=== PATIENT | male | born 1985 | race Caucasian/White ===

== ENCOUNTER 2017-01-12 20:09 | Emergency (ER) | payer OTHER ==
[2017-01-12] MEDS ORDERED: Nalbuphine 10 MG/1 ML Vial IM ONE (21:33)
[2017-01-12] MEDS ORDERED: Lidocaine 2% 5 ML SDV ONE (22:19)
[2017-01-12] MEDS ORDERED: Propofol 200 MG/20 ML SDV ONE (22:19)
[2017-01-12] MEDS ORDERED: fentaNYL 100 MCG/2 ML SDV ONE (22:19)
[2017-01-12] MEDS ORDERED: Lactated Ringers 1,000 ML IV ONE (22:21)
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
--- NOTE | 2017-01-12 23:05 | PCM48HPAN ---
Post Anesthesia Note - EVALUATION WITHIN 48HRS OF ANESTHETIC Vital Signs in Normal Range: Yes Patient Participated in Evaluation: Yes Respiratory Function Stable: Yes Airway Patent: Yes Cardiovascular Function Stable: Yes Hydration Status Stable: Yes Pain Control Satisfactory: Yes Nausea and Vomiting Control Satisfactory: Yes Mental Status Recovered: Yes - COMMENTS/OBSERVATIONS Free Text/Narrative:: pt awake and alert with no complaints after care turned back over to nursing staff.
[2017-01-12 23:45] VITALS: BP 127/62
--- NOTE | 2017-01-13 11:11 | CR ---
EXAM DATE: 01/12/17 PATIENT'S AGE: 31 Patient: FANNY MOHAN Facility: [place], [place] Site . Site : 1985 Study: XRay Shoulder Right [id number]/23/2017 9:03:29 PM Ordering Physician: Doctor Mckenzie Final Report: Right shoulder. 3 VIEWS INDICATION: Pain. IMPRESSION: No visualized fracture. Humeral degeneration with moderate marginal spurring. Alignment of the glenohumeral joint appears normal. Spurring of the medial humerus is noted with early narrowing of the anterior glenohumeral joint space on the axillary view. The frontal view does not completely include the head of the humerus. Dictated by Bud Noe MD @ Jan 12 2017 9:29PM (Electronic Signature) Report Signed by Proxy. JUAN
== END 2017-01-12 23:43 | disposition home or self-care (01) ==
LOC: MW.ED 20:09
DX: M75.01 Adhesive capsulitis of right shoulder (principal); Z98.890 Other specified postprocedural states; F17.210 Nicotine dependence, cigarettes, uncomplicated; Z91.09 Other allergy status, other than to drugs and biological substances
CPT/HCPCS: 23650; 73030; 96365; 96372; 99283; A4566; J2300; J3010; J7120; 01620; 99282; J2704

== ENCOUNTER 2017-01-19 13:39 | Emergency (ER) | payer OTHER ==
[2017-01-19] MEDS ORDERED: Sodium Chloride 0.9% 2.5 ML Syringe FLUSH PRN (13:58)
[2017-01-19] MEDS ORDERED: Sodium Chloride 0.9% 10 ML Syringe FLUSH PRN (13:58)
[2017-01-19] MEDS ORDERED: Ondansetron 4 MG/2 ML SDV IVPUSH ONE (13:58)
[2017-01-19] MEDS ORDERED: Morphine 2 MG/ML Syringe IVPUSH ONE ×3 (13:58→16:20)
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
--- NOTE | 2017-01-19 14:59 | CR ---
EXAMINATION: Right shoulder HISTORY: 01/12/2017 COMPARISON: 01/12/2017 TECHNIQUE: 2 views FINDINGS/IMPRESSION: There is a curvilinear ossific density projecting between the humeral head and g lenoid possibly representing a small fracture. Remaining osseous structures and joint spaces otherwis e appear intact. Bone mineralization is otherwise normal.
[2017-01-19] MEDS ORDERED: Propofol 200 MG/20 ML SDV ONE (16:57)
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
--- NOTE | 2017-01-19 17:44 | PCM.OPNOTE ---
- General Post-Op/Procedure Note Date of Surgery/Procedure: 01/19/17 Operative Procedure(s): CR R shoulder Post-Op Diagnosis: R shoulder posterior dislocation Anesthesia Technique: Moderate Sedation Primary Surgeon: Amina Combs Editor Map: Luis Enrique Springer in mLs: 0 Condition: Good Free Text/Narrative:: #[id number]
[2017-01-19] MEDS ORDERED: Acetaminophen/HYDROcodone 325-10 MG Tab PO ONE (17:51)
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
[2017-01-19 18:51] VITALS: BP 120/80
--- NOTE | 2017-01-20 00:31 | OR ---
SURGEON: Amina Combs MD DATE OF PROCEDURE: 01/19/2017 PREOPERATIVE DIAGNOSIS: Right posterior shoulder dislocation. POSTOPERATIVE DIAGNOSIS: Right posterior shoulder dislocation. PROCEDURE: Closed reduction, right shoulder. PRESCHOOL DISABILITY TEACHER: Luis Enrique Springer PA-C. ANESTHESIA: Sedation. ESTIMATED BLOOD LOSS: 0 mL. TOURNIQUET TIME: 0 minutes. COMPLICATIONS: None. DVT PROPHYLAXIS: Not indicated. IMPLANTS USED: None. BRIEF HISTORY: Jorge is a 31-year-old, right-hand dominant male, who was seen in the emergency room with complaint of right shoulder pain. He held his shoulder in a flexed position to 90 degrees. He complained of pain with any other movement. He does have a history of three prior shoulder surgeries for chronic instability. He did undergo closed reduction of a right shoulder dislocation approximately one week ago. He states he had been doing well until this recent episode. He states that earlier today he was throwing some garbage when he felt a pain in his right shoulder. He presented to the emergency room. Upon review of the x- rays, I did recommend closed reduction of the shoulder. The risks and goals of the procedure were discussed with the patient and were documented preoperatively. He agreed to proceed. DESCRIPTION OF PROCEDURE: The patient was properly identified. Conscious sedation was administered by the anesthesia staff. After adequate anesthesia was obtained, a time-out was performed to ensure correct site and procedure. Preoperative antibiotics were not given. The surgical site had been marked preoperatively. Gentle traction was applied to the shoulder and the shoulder reduced quite easily. It was taken through a range of motion. He did have full range of motion; however, with forward flexion, I was able to posteriorly dislocate him. He was again reduced and placed into a shoulder immobilizer. Postreduction x- rays confirmed adequate reduction of the shoulder. He was awakened from his anesthetic. He tolerated the procedure well. He is instructed to remain in a shoulder immobilizer. He was not to do any active motion of the right shoulder. CECILIA / RICARDO /[id number]
--- NOTE | 2017-01-20 09:36 | CR ---
EXAM DATE: 01/19/17 PATIENT'S AGE: 31 Patient: FANNY MOHAN Facility: [place], [place] Site . Site : 1985 Study: XRay Shoulder Right [id number]/30/2017 5:44:16 PM Ordering Physician: Doctor Mckenzie Final Report: INDICATION: post reduction. COMPARISON: Film done earlier the same day. FINDINGS: Two views of the right shoulder were obtained. There is no dislocation seen. Again noted is a well corticated calcification anterior to the humeral head may be related to old fracture versus of spurring. This was present on the film done 01/12/2017. There is a smaller calcifications seen anterior to the humeral head on the trans axillary view which could be a chip fracture. This is not seen on the films done 01/12/2017. Dictated by Alban Roe MD @ 01/19/2017 7:08:34 PM Dictated by: Alban Roe MD @ 01/19/2017 19:09:43 (Electronic Signature) Report Signed by Proxy. JUAN
== END 2017-01-19 18:45 | disposition home or self-care (01) ==
LOC: MW.ED 13:39
DX: S43.021A Posterior subluxation of right humerus, initial encounter (principal); F17.210 Nicotine dependence, cigarettes, uncomplicated; F32.9 Major depressive disorder, single episode, unspecified; Z98.890 Other specified postprocedural states; Z91.048 Other nonmedicinal substance allergy status; X58.XXXA Exposure to other specified factors, initial encounter; Y93.89 Activity, other specified; Y99.0 Civilian activity done for income or pay
CPT/HCPCS: 23650; 73030; 96374; 96375; 96376; 99152; 99153; 99283; A9270; J2270; J2405; 01620; 99282; J2704

== ENCOUNTER 2017-02-03 00:25 | Emergency (ER) | payer OTHER ==
[2017-02-03 00:38] VITALS: BP 135/82
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
--- NOTE | 2017-02-03 10:23 | CT ---
EXAM DATE: 02/03/17 PATIENT'S AGE: 31 Patient: FANNYKenyon MOHAN Facility: [place], [place] Site . Site : 1985 Study: CT Spine Lumbar WO CONT [id number]/14/2017 1:01:00 AM Ordering Physician: Doctor Mckenzie Final Report: INDICATION: Loss of sensation and can`t move the left leg for 3 hours. Back pain. TECHNIQUE: CT lumbar spine without contrast. COMPARISON: None. FINDINGS: Minimal leftward convex curvature of the lumbar spine. No evidence of acute fracture or other significant bony central canal compromise. No suspicious lytic or sclerotic osseous lesion. Mild disc bulge at L3-4. Limited imaging of the contents within the central canal is otherwise unremarkable by CT. No significant bony neural foraminal narrowing at any level. Paraspinal soft tissues elsewhere as imaged are unremarkable. IMPRESSION: No acute or suspicious osseous abnormality. Dictated by Julián Harrington MD @ 02/03/2017 1:25:30 AM Dictated by: Julián Harrington MD @ 02/03/2017 01:25:40 (Electronic Signature) Report Signed by Proxy. JOHN [facility]. OISHEI CHILDREN'S HOSPITALDevaughn
== END 2017-02-03 01:26 | disposition left against medical advice (07) ==
LOC: MW.ED 00:25 → EEVIPCON 00:25 → MW.ED 01:26
DX: G57.92 Unspecified mononeuropathy of left lower limb (principal); F17.210 Nicotine dependence, cigarettes, uncomplicated; Z91.041 Radiographic dye allergy status
CPT/HCPCS: 72131; 72131-26; 99283; 99283-25

== ENCOUNTER 2017-02-25 13:15 | Emergency (ER) | payer OTHER ==
[2017-02-25] MEDS ORDERED: Sodium Chloride 0.9% 2.5 ML Syringe FLUSH PRN (13:54)
[2017-02-25] MEDS ORDERED: Sodium Chloride 0.9% 10 ML Syringe FLUSH PRN (13:54)
[2017-02-25] MEDS ORDERED: Sodium Chloride 0.9% 1,000 ML IV ONE (13:57)
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
--- NOTE | 2017-02-25 14:30 | CR ---
EXAMINATION: Right shoulder HISTORY: Pain COMPARISON: 01/19/2017 TECHNIQUE: 3 views FINDINGS: There is no definite fracture or acute osseous abnormality. Humeral head appears high ridin g which may suggest underlying rotator cuff arthropathy. Subchondral sclerosis is noted within the gl enoid. Osteophyte formation is noted within the glenohumeral joint, possibly secondary to an old inju ry. This likely an old healed right clavicle fracture deformity also noted. IMPRESSION: 1. No definite acute osseous abnormality. 2. Right humerus appears high riding which may suggest underlying rotator cuff arthropathy. 3. Age advanced osteoarthritic changes within the glenohumeral joint, likely secondary to an old inju ry.
[2017-02-25] MEDS ORDERED: HYDROmorphone 2 MG/ML Syringe IVPUSH ONE (14:50)
--- NOTE | 2017-02-25 16:10 | CR ---
EXAMINATION: Right shoulder HISTORY: Post reduction COMPARISON: Same day TECHNIQUE: 2 views FINDINGS/IMPRESSION: Again noted in the right humerus is high riding suggesting rotator cuff arthropa thy. No evidence of dislocation on the Y view. Moderate osteoarthritic changes noted within the gleno humeral joint.
[2017-02-25 16:36] VITALS: BP 127/68
== END 2017-02-25 16:26 | disposition home or self-care (01) ==
LOC: MW.ED 13:15
DX: M24.411 Recurrent dislocation, right shoulder (principal); F17.210 Nicotine dependence, cigarettes, uncomplicated; Z91.048 Other nonmedicinal substance allergy status
CPT/HCPCS: 23650; 73030; 96361; 96374; 99283; A4566; J1170; J7040

== ENCOUNTER 2017-03-16 15:03 | Emergency (ER) | payer OTHER ==
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
--- NOTE | 2017-03-16 16:13 | CR ---
EXAMINATION: Right shoulder HISTORY: Pain COMPARISON: 02/25/2017 TECHNIQUE: 3 views FINDINGS: There is no fracture or acute osseous abnormality. The humeral head appears partially sublu xed posteriorly on the Y view. However the axillary view precludes complete dislocation. There is ost eophyte formation noted along the posterior aspect of the glenoid. IMPRESSION: 1. Partial posterior subluxation of the glenohumeral joint without complete dislocation.
[2017-03-16] MEDS ORDERED: Ketorolac 60 MG/2 ML SDV IM ONE (16:15)
--- NOTE | 2017-03-16 16:41 | CR ---
EXAMINATION: Right shoulder HISTORY: Pain COMPARISON: Same day TECHNIQUE: 2 views FINDINGS/IMPRESSION: Post reduction images demonstrate the glenohumeral joint in normal alignment wit hout evidence of a dislocation or subluxation.
[2017-03-16 17:41] VITALS: BP 133/72
== END 2017-03-16 17:25 | disposition home or self-care (01) ==
LOC: MW.ED 15:03
DX: M24.411 Recurrent dislocation, right shoulder (principal); F17.210 Nicotine dependence, cigarettes, uncomplicated; X50.0XXA Overexertion from strenuous movement or load, initial encounter; Y99.0 Civilian activity done for income or pay
CPT/HCPCS: 23650; 73030; 96372; 99283; A4566; J1885

== ENCOUNTER 2017-03-17 13:25 | Emergency (ER) | payer OTHER ==
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
[2017-03-17 14:20] LABS: ACETAMINOPHEN < 3.0 ug/mL; CHLORIDE,CL 107 mmol/L (98-110); SODIUM,NA 139 mmol/L (136-146)
[2017-03-17 15:26] VITALS: BP 123/77
== END 2017-03-17 15:53 ==
LOC: MW.ED 13:25
DX: R45.851 Suicidal ideations (principal); S51.811A Laceration without foreign body of right forearm, initial encounter; F17.210 Nicotine dependence, cigarettes, uncomplicated; F31.9 Bipolar disorder, unspecified; X78.8XXA Intentional self-harm by other sharp object, initial encounter
CPT/HCPCS: 36415; 80053; 80305; 81001; 83735; 84443; 84481; 85025; 93005; 99284; G0480; 99283

== ENCOUNTER 2017-03-27 10:20 | Emergency (ER) | payer OTHER ==
[2017-03-27 10:36] VITALS: BP 124/62
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
--- NOTE | 2017-03-28 10:41 | CR ---
EXAM DATE: 03/27/17 PATIENT'S AGE: 31 Patient: FANNY MOHAN Facility: [place], [place] Site . Site : 1985 Study: XRay Chest Left RIBS [id number]/5/2017 11:10:09 AM Ordering Physician: Doctor Mckenzie Final Report: CLINICAL INDICATION: Left anterior rib pain for 2 days with no known injury. Findings: The cardiomediastinal silhouette, lung parenchyma, pulmonary vasculature and pleural surfaces are all normal in appearance. There is mild thoracic spinal asymmetry. Left rib details views are negative for fracture or other osseous abnormality. Impression: Mild thoracic spinal asymmetry. Normal appearing left ribs. Dictated by Rizwan Sauceda MD @ Mar 27 2017 11:31AM (Electronic Signature) Report Signed by Proxy. JUAN
== END 2017-03-27 12:15 | disposition home or self-care (01) ==
LOC: MW.ED 10:20
DX: R07.81 Pleurodynia (principal); F17.210 Nicotine dependence, cigarettes, uncomplicated; Z79.899 Other long term (current) drug therapy; Z91.09 Other allergy status, other than to drugs and biological substances; Z91.048 Other nonmedicinal substance allergy status
CPT/HCPCS: 71101-26-LT; 71101-LT; 99282; 99283

== ENCOUNTER 2017-05-21 14:10 | Emergency (ER) | payer OTHER ==
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
[2017-05-21] MEDS ORDERED: Pantoprazole 40 MG Tab.CR PO ONE (14:31)
[2017-05-21 16:57] VITALS: BP 112/61
== END 2017-05-21 14:37 | disposition home or self-care (01) ==
LOC: MW.ED 14:10
DX: K29.70 Gastritis, unspecified, without bleeding (principal); F17.210 Nicotine dependence, cigarettes, uncomplicated; Z91.048 Other nonmedicinal substance allergy status
CPT/HCPCS: 99283; A9270; 99282

== ENCOUNTER 2017-05-30 13:16 | Emergency (ER) | payer OTHER ==
--- NOTE | 2017-05-30 13:51 | CR ---
EXAMINATION: Right shoulder HISTORY: Dislocation COMPARISON: 03/16/2017 TECHNIQUE: Single oblique AP view FINDINGS/IMPRESSION: There is no acute osseous abnormality, dislocation, or fracture. There is a prom inent humeral osteophyte along the inferior aspect of the glenohumeral joint. A posterior dislocation cannot be excluded.
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
--- NOTE | 2017-05-30 14:46 | CR ---
EXAMINATION: Right shoulder HISTORY: Post reduction COMPARISON: 2 views TECHNIQUE: There is no acute osseous abnormality, dislocation, or fracture. FINDINGS/IMPRESSION: No residual evidence of a glenohumeral dislocation. Mild osteoarthritic changes noted within the glenohumeral joint.
[2017-05-30 14:59] VITALS: BP 97/73
== END 2017-05-30 14:41 | disposition home or self-care (01) ==
LOC: MW.ED 13:16
DX: M24.411 Recurrent dislocation, right shoulder (principal); F17.210 Nicotine dependence, cigarettes, uncomplicated; Z79.899 Other long term (current) drug therapy
CPT/HCPCS: 23650; 73020; 73030; 99283; A4566

== ENCOUNTER 2017-06-10 07:33 | Emergency (ER) | payer OTHER ==
[2017-06-10] MEDS ORDERED: Ketorolac 60 MG/2 ML SDV IM ONE (07:46)
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
--- NOTE | 2017-06-10 08:35 | CR ---
EXAMINATION: Lumbar spine, sacrum and coccyx HISTORY: Pain COMPARISON: 06/10/2017 TECHNIQUE: AP and lateral views of the lumbar spine and AP and lateral views sacrum and coccyx. FINDINGS: Mild levocurvature of the lumbar spine. The vertebral body heights and disc spaces appear m aintained. No fracture or acute osseous abnormality. Bone mineralization is grossly normal. SI joints are symmetric. Sacrum and coccyx appear grossly intact. IMPRESSION: No acute findings noted within the lumbar spine or sacrum.
[2017-06-10 08:42] VITALS: BP 109/63
== END 2017-06-10 09:02 | disposition home or self-care (01) ==
LOC: MW.ED 07:33
DX: S39.012A Strain of muscle, fascia and tendon of lower back, initial encounter (principal); F32.9 Major depressive disorder, single episode, unspecified; F17.210 Nicotine dependence, cigarettes, uncomplicated; Z91.048 Other nonmedicinal substance allergy status; Z79.899 Other long term (current) drug therapy; W19.XXXA Unspecified fall, initial encounter
CPT/HCPCS: 72100; 72220; 96372; 99283; J1885

== ENCOUNTER 2017-07-12 21:35 | Emergency (ER) | payer OTHER ==
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
[2017-07-12 23:16] VITALS: BP 109/65
--- NOTE | 2017-07-13 14:28 | CR ---
EXAM DATE: 07/12/17 PATIENT'S AGE: 32 Patient: FANNY CERDA Facility: [place], [place] Site . Site : 1985 Study: XRay Shoulder Right [id number]/20/2018 10:10:06 PM Ordering Physician: Doctor Mckenzie Final Report: HISTORY: Dislocation, history of dislocation. FINDINGS/IMPRESSION: Three views of the right shoulder were obtained and compared with 30 May 2017. An AP image was obtained. Two additional images with atypical positioning were also obtained. Images demonstrates degenerative changes of the glenohumeral joint with a Hill-Sachs deformity. New anterior subcoracoid dislocation is appreciated. Recommend a trans-scapular Y-view for complete evaluation for dislocation and exclude posterior dislocation. Dictated by Carline Mathis MD @ 07/12/2017 10:29:05 PM Dictated by: Carline Mathis MD @ 07/12/2017 22:29:13 (Electronic Signature) Report Signed by Proxy. JUAN
--- NOTE | 2017-07-13 14:29 | CR ---
EXAM DATE: 07/12/17 PATIENT'S AGE: 32 Patient: FANNY CERDA Facility: [place], [place] Site . Site : 1985 Study: XRay Shoulder Right [id number]/20/2018 11:06:23 PM Ordering Physician: Parviz Davis Final Report: HISTORY: Dislocation, history of dislocations. FINDINGS: Additional transscapular Y-view was obtained and compared with AP and axillary views as well as prior examination of 30 May 2017. There is decrease of the glenohumeral joint with spurring. One of the axillary views demonstrates a calcific density anteriorly. This has been previously described on report of 19 January 2017. There does appear to be a Hill-Sachs deformity depression of the humeral head. No current dislocation is seen. The fixed anterior position of the humerus in the joint may be a result of marked degenerative changes. Alternatively, if there is an old fracture fragment, this could also be the source of locking. Dictated by Carline Mathis MD @ 07/12/2017 11:36:49 PM Dictated by: Carline Mathis MD @ 07/12/2017 23:40:04 (Electronic Signature) Report Signed by Proxy. JUAN
== END 2017-07-12 23:55 | disposition home or self-care (01) ==
LOC: MW.ED 21:35
DX: S49.91XA Unspecified injury of right shoulder and upper arm, initial encounter (principal); F17.210 Nicotine dependence, cigarettes, uncomplicated; Z98.890 Other specified postprocedural states; Z79.899 Other long term (current) drug therapy; Z91.048 Other nonmedicinal substance allergy status; Z91.018 Allergy to other foods
CPT/HCPCS: 73020-26-RT; 73020-RT; 73030-26-RT; 73030-RT; 99283

== ENCOUNTER 2017-08-13 01:30 | Emergency (ER) | payer OTHER | END 2017-08-13 01:36 | disposition left against medical advice (07) | LOC: MW.ED 01:30 | DX: Z53.21 Procedure and treatment not carried out due to patient leaving prior to being seen by health care provider (principal) | CPT/HCPCS: 99283 ==

== ENCOUNTER 2017-08-24 15:59 | Emergency (ER) | payer SELFPAY ==
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
[2017-08-24 18:11] VITALS: BP 122/65
--- NOTE | 2017-08-25 09:32 | CR ---
EXAM DATE: 08/24/17 PATIENT'S AGE: 32 Patient: FANNY MARQUES Facility: [place], [place] Site . Site : 1985 Study: XRay Extremity Left [id number] humerus-08/24/2017 4:46:10 PM Ordering Physician: Adiel Cardona Final Report: INDICATION: Left Humerus Pain for 1 Week with no Injury TECHNIQUE: Two-views of the left humerus. The proximal humerus evaluation is degraded secondary to under penetration COMPARISON: None FINDINGS: Bones: Questionable cortical step-off along the distal left humerus seen only on the lateral projection. Joint spaces: Unremarkable. Soft tissues: Unremarkable. IMPRESSION: Questionable cortical step-off along the distal left humerus seen only on the lateral projection. Recommend dedicated left elbow radiographs to help further delineate. Dictated by Mauricio Velez MD @ 08/24/2017 4:58:12 PM Dictated by: Mauricio Velez MD @ 08/24/2017 16:59:05 (Electronic Signature) Report Signed by Proxy. JUAN
--- NOTE | 2017-08-25 09:34 | CR ---
EXAM DATE: 08/24/17 PATIENT'S AGE: 32 Patient: FANNY MOHAN Facility: [place], [place] Site . Site : 1985 Study: XRay Extremity Left elbow [id number]/4/2018 5:23:07 PM Ordering Physician: Adiel Cardona Final Report: INDICATION: Questionable cortical step-off involving the distal left humerus on prior study. No history trauma. TECHNIQUE: 4 views left elbow COMPARISON: 09/13/2011 FINDINGS: Bones: Alignment is normal. No fractures or bone lesions. Joint spaces: Unremarkable. Soft tissues: Unremarkable. IMPRESSION: No definitive fracture or joint effusion to suggest occult fracture. Correlate with point tenderness of the distal humerus. Dictated by Teddy Curiel MD @ 08/24/2017 5:49:39 PM Dictated by: Teddy Curiel MD @ 08/24/2017 17:49:46 (Electronic Signature) Report Signed by Proxy. [email or web address]
== END 2017-08-24 18:05 | disposition home or self-care (01) ==
LOC: MW.ED 15:59
DX: M79.602 Pain in left arm (principal); Z91.041 Radiographic dye allergy status; Z87.891 Personal history of nicotine dependence
CPT/HCPCS: 73060-26-LT; 73060-LT; 73080-26-LT; 73080-LT; 99282; 99283

== ENCOUNTER 2017-08-25 20:26 | Emergency (ER) | payer OTHER ==
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
[2017-08-25 22:23] VITALS: BP 107/57
--- NOTE | 2017-08-26 14:29 | CR ---
EXAM DATE: 08/25/17 PATIENT'S AGE: 32 Patient: FANNY MOHAN Facility: [place], [place] Site . Site : 1985 Study: XRay Extremity Right HAND [id number]/5/2018 9:19:04 PM Ordering Physician: Doctor Mckenzie Final Report: INDICATION: PT STATES PUNCHED A WALL TONIGHT, PAIN IN HAND TECHNIQUE: Three views of the right hand COMPARISON: None FINDINGS: Bones: No fractures or bone lesions. Joint spaces: Unremarkable. Soft tissues: Unremarkable. IMPRESSION: No acute bony abnormality Dictated by Mauricio Velez MD @ 08/25/2017 9:21:10 PM Dictated by: Mauricio Velez MD @ 08/25/2017 21:28:05 (Electronic Signature) Report Signed by Proxy. [facility] MEDICAL CENTERDevaughn
== END 2017-08-25 22:16 | disposition home or self-care (01) ==
LOC: MW.ED 20:26
DX: S60.221A Contusion of right hand, initial encounter (principal); Z91.048 Other nonmedicinal substance allergy status; Z79.899 Other long term (current) drug therapy; Z87.891 Personal history of nicotine dependence; W22.8XXA Striking against or struck by other objects, initial encounter
CPT/HCPCS: 73130-26-RT; 73130-RT; 99283

== ENCOUNTER 2017-09-08 20:45 | Emergency (ER) | payer OTHER ==
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
[2017-09-08 22:11] VITALS: BP 117/75
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
== END 2017-09-08 22:10 | disposition home or self-care (01) ==
LOC: MW.ED 20:45
DX: M24.411 Recurrent dislocation, right shoulder (principal); F17.210 Nicotine dependence, cigarettes, uncomplicated; Z91.048 Other nonmedicinal substance allergy status; Z79.899 Other long term (current) drug therapy
CPT/HCPCS: 73030; 99283; A4566

== ENCOUNTER 2017-10-27 12:22 | Emergency (ER) | payer OTHER ==
[2017-10-27 12:47] VITALS: BP 140/86
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
--- NOTE | 2017-10-27 13:39 | CR ---
Left foot Clinical history: Pain Comparison: None Findings: Moderate hallux valgus. Bones are normally mineralized for age with no acute findings. Impression: Moderate hallux valgus
[2017-10-27] MEDS ORDERED: Alum Hydrox/Mag Hydrox/Simeth 15 ML, Metoclopramide 5 MG, Lidocaine 2% 5 ML PO ONE ×3 (13:54)
[2017-10-27] MEDS ORDERED: LORazepam 2 MG/ML SDV IVPUSH ONE (13:54)
[2017-10-27] MEDS ORDERED: Pantoprazole 40 MG Vial IVPUSH ONE (13:54)
== END 2017-10-27 14:19 | disposition home or self-care (01) ==
LOC: MW.ED 12:22
DX: M79.672 Pain in left foot (principal); Z91.041 Radiographic dye allergy status; Z91.048 Other nonmedicinal substance allergy status; F17.210 Nicotine dependence, cigarettes, uncomplicated
CPT/HCPCS: 73630-26-LT; 73630-LT; 99283

== ENCOUNTER 2017-11-29 17:17 | Emergency (ER) | payer OTHER ==
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
[2017-11-29] MEDS ORDERED: Ketorolac 60 MG/2 ML SDV IM ONE (18:28)
[2017-11-29 19:43] VITALS: BP 127/74
--- NOTE | 2017-11-30 12:56 | CR ---
EXAM DATE: 11/29/17 PATIENT'S AGE: 32 Patient: FANNY MOHAN Facility: [place], [place] Site . Site : 1985 Study: XRay Extremity Left hand [id number]/10/2018 6:37:01 PM Ordering Physician: Doctor Mckenzie Final Report: INDICATION: Dog bites to hand TECHNIQUE: Hand radiograph 2 views left COMPARISON: None FINDINGS: Bones: No acute fractures or aggressive bone lesions are identified. Joints: The carpal and metacarpal-phalangeal joints are unremarkable in appearance. The interphalangeal joints are normal in appearance. Soft tissues: Unremarkable. No radiopaque foreign bodies are seen. IMPRESSION: 1. No acute osseous injuries or abnormalities are noted. Dictated by: Curt Abbasi MD @ 11/29/2017 18:54:27 (Electronic Signature) Report Signed by Proxy. JUAN
--- NOTE | 2017-11-30 12:57 | CR ---
EXAM DATE: 11/29/17 PATIENT'S AGE: 32 Patient: FANNY MOHAN Facility: [place], [place] Site . Site : 1985 Study: XRay Extremity Right hand [id number]/10/2018 6:37:31 PM Ordering Physician: Doctor Mckenzie Final Report: INDICATION: Dog bite to hand TECHNIQUE: Hand radiograph 2 views right COMPARISON: None FINDINGS: Bones: No acute fractures or aggressive bone lesions are identified. Joints: The carpal and metacarpal-phalangeal joints are unremarkable in appearance. The interphalangeal joints are normal in appearance. Soft tissues: Unremarkable. No radiopaque foreign bodies are seen. IMPRESSION: 1. No acute osseous injuries or abnormalities are noted. Dictated by: Curt Abbasi MD @ 11/29/2017 18:55:12 (Electronic Signature) Report Signed by Proxy. JUAN
== END 2017-11-29 19:42 | disposition home or self-care (01) ==
LOC: MW.ED 17:17
DX: S61.253A Open bite of left middle finger without damage to nail, initial encounter (principal); S60.051A Contusion of right little finger without damage to nail, initial encounter; S60.415A Abrasion of left ring finger, initial encounter; M25.522 Pain in left elbow; W54.0XXA Bitten by dog, initial encounter; F17.210 Nicotine dependence, cigarettes, uncomplicated; Z91.041 Radiographic dye allergy status; Z91.048 Other nonmedicinal substance allergy status
CPT/HCPCS: 73120; 96372; 99283; J1885

== ENCOUNTER 2018-01-16 12:09 | Emergency (ER) | payer OTHER ==
[2018-01-16 12:44] VITALS: BP 124/62
[2018-01-16] MEDS ORDERED: Ketorolac 60 MG/2 ML SDV IM ONE (14:18)
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
--- NOTE | 2018-01-16 16:33 | CR ---
EXAM DATE: 01/16/18 PATIENT'S AGE: 32 Patient: FANNY MARQUES Facility: [place], [place] Site . Site : 1985 Study: XRay Knee Left [id number]/2018 2:02:22 PM Ordering Physician: Doctor Mckenzie Final Report: INDICATION: Medial pain and swelling. COMPARISON: None. FINDINGS: Soft tissue structures are intact. Bony mineralization is normal. There is no fracture nor dislocation. Joint spaces are preserved. IMPRESSION: No fracture/dislocation left knee. Dictated by Shae Yu MD @ Jan 16 2018 2:13PM (Electronic Signature) Report Signed by Proxy. JUAN
== END 2018-01-16 14:33 | disposition home or self-care (01) ==
LOC: MW.ED 12:09
DX: S80.02XA Contusion of left knee, initial encounter (principal); F17.210 Nicotine dependence, cigarettes, uncomplicated; Z91.018 Allergy to other foods; Z88.8 Allergy status to other drugs, medicaments and biological substances; W23.1XXA Caught, crushed, jammed, or pinched between stationary objects, initial encounter
CPT/HCPCS: 73560; 99283; J1885

== ENCOUNTER 2018-08-23 14:34 | Emergency (ER) | payer SELFPAY ==
[2018-08-23] MEDS ORDERED: Sodium Chloride 0.9% 10 ML Syringe FLUSH PRN (14:37)
[2018-08-23] MEDS ORDERED: Sodium Chloride 0.9% 2.5 ML Syringe FLUSH PRN (14:37)
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
[2018-08-23] MEDS ORDERED: Ketorolac 30 MG/ML SDV IVPUSH ONE (14:40)
[2018-08-23] MEDS ORDERED: Sodium Chloride 0.9% 1,000 ML IV ONE (14:40)
--- NOTE | 2018-08-23 15:21 | CR ---
EXAMINATION: Portable chest radiograph. HISTORY: Chest pain. Comparison: 03/04/2018. FINDINGS: The trachea is midline. The cardiomediastinal silhouette is within normal limits. No pulmonary infiltrates, effusions or pneumothorax. Osseous structures appear unremarkable. IMPRESSION: No acute cardiopulmonary process.
[2018-08-23 16:03] LABS: CHLORIDE,CL 102 mmol/L (98-107); SODIUM,NA 139 mmol/L (136-148)
[2018-08-23] MEDS ORDERED: LORazepam 2 MG/ML SDV IVPUSH ONE (16:05)
[2018-08-23 16:49] VITALS: BP 109/67
== END 2018-08-23 16:49 | disposition home or self-care (01) ==
LOC: MW.ED 14:34
DX: R07.2 Precordial pain (principal); Z91.09 Other allergy status, other than to drugs and biological substances
CPT/HCPCS: 36415; 71045; 80053; 84484; 85025; 93005; 96361; 96374; 96375; 99285; J1885; J2060; J7040

== ENCOUNTER 2018-08-26 09:23 | Emergency (ER) | payer SELFPAY ==
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
[2018-08-26 10:19] LABS: CHLORIDE,CL 105 mmol/L (98-107); SODIUM,NA 143 mmol/L (136-148)
[2018-08-26 10:26] LABS: ACETAMINOPHEN <2.0 ug/mL
[2018-08-26 12:29] VITALS: BP 138/99
[2018-08-26] MEDS ORDERED: LORazepam 2 MG/ML SDV IM ONE (12:40)
== END 2018-08-26 13:45 ==
LOC: MW.ED 09:23
DX: F32.9 Major depressive disorder, single episode, unspecified (principal); S43.004A Unspecified dislocation of right shoulder joint, initial encounter; Z91.041 Radiographic dye allergy status; Z91.09 Other allergy status, other than to drugs and biological substances; X58.XXXA Exposure to other specified factors, initial encounter
CPT/HCPCS: 36415; 80053; 80305; 81001; 83735; 84443; 85025; 93005; 96372; 99285; G0480; J2060

== ENCOUNTER 2018-11-30 16:34 | Emergency (ER) | payer MEDICAID, OTHER ==
[2018-11-30] MEDS ORDERED: Sodium Chloride 0.9% 1,000 ML IV ONE (16:45)
[2018-11-30] MEDS ORDERED: Ondansetron 4 MG/2 ML SDV IVPUSH ONE (16:45)
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
[2018-11-30 17:34] LABS: CHLORIDE,CL 104 mmol/L (98-107); SODIUM,NA 143 mmol/L (136-148)
[2018-11-30] MEDS ORDERED: Iopamidol 755 MG/ML 500 ML Multipack Bottle IVPUSH ONE (18:06)
[2018-11-30] MEDS ORDERED: Promethazine 25 MG/ML SDV IM ONE (18:13)
--- NOTE | 2018-11-30 18:56 | CT ---
INDICATION: Headache x2 days TECHNIQUE: CT head without contrast. COMPARISON: None FINDINGS: CSF spaces: Within normal limits for age. Brain parenchyma: The bhatia-white differentiation is normal. No sign of mass, hemorrhage, or midline shift. Skull base and calvarium: Minimal mucosal thickening right maxillary sinus. The visualized orbits are grossly unremarkable. No skull fractures. IMPRESSION: No gross intracranial abnormalities. Minimal mucosal thickening right maxillary sinus. Dictated by Teddy Curiel MD @ 11/30/2018 6:53:59 PM Please note that all CT scans at this facility use dose modulation, iterative reconstruction, and/or weight-based dosing when appropriate to reduce radiation dose to as low as reasonably achievable. Dictated by: Teddy Curiel MD @ 11/30/2018 18:54:06 (Electronically Signed)
--- NOTE | 2018-11-30 19:34 | CT ---
INDICATION: Nausea and vomiting for 2 days. Patient says he has not been able to stop vomiting. COMPARISON: 03/14/2018 TECHNIQUE: CT examination of the abdomen and pelvis was performed with the uneventful intravenous administration of 80 cc of Isovue 370 while 3 mm thick axial sections were obtained from the lung bases through the pubic symphysis. Oral contrast was not administered. Please note that all CT scans at this facility use dose modulation, iterative reconstruction, and/or weight-based dosing when appropriate to reduce radiation dose to as low as reasonably achievable. FINDINGS: There is patient motion in the inferior pelvis as the patient started to vomit. This limits sensitivity in this portion of the exam. In the abdomen, the liver, spleen, pancreas, and adrenals are normal in appearance. The kidneys are normal in appearance. The gallbladder is normal in appearance. The abdominal aorta is normal in caliber with no sign of dilatation. There is no sign of retroperitoneal mass or adenopathy. The stomach, loops of small bowel, and colon in the abdomen are normal in appearance. In the pelvis, the appendix is normal in appearance with no sign of inflammatory process. There is a new concentric area of density around peritoneal fat located in the left paramedian mid pelvis on axial image 104 series 201 through image 115. While there is no sign of any small bowel dilatation associated with this, I cannot exclude an internal hernia. There is high density in the small bowel adjacent to this, possibly from ingested medication. The rest of the loops of small bowel and colon in the pelvis are normal in appearance. The prostate is poorly seen because of patient motion, but is grossly normal. Normal in appearance. The urinary bladder is normal in appearance. There is no sign of pelvic or inguinal mass or adenopathy. The lung bases are clear. The osseous structures are normal in appearance for the patient`s age. IMPRESSION: No sign of small bowel or gastric distension to correlate with the history of vomiting. CT of the abdomen is unremarkable CT of the pelvis shows a new concentric area of density around the peritoneal fat in the left paramedian mid pelvis, without any associated small-bowel dilatation. This could be an internal hernia. Recommend correlation with the clinical exam. Please note that all CT scans at this facility use dose modulation, iterative reconstruction, and/or weight-based dosing when appropriate to reduce radiation dose to as low as reasonably achievable. Dictated by Jordan Miramontes MD @ Nov 30 2018 7:21PM Signed by Dr. Jrodan Miramontes @ Nov 30 2018 7:32PM
[2018-11-30 19:49] VITALS: BP 99/53
== END 2018-11-30 19:49 | disposition home or self-care (01) ==
LOC: MW.ED 16:34
DX: R11.2 Nausea with vomiting, unspecified (principal); R10.84 Generalized abdominal pain; F17.210 Nicotine dependence, cigarettes, uncomplicated; Z91.048 Other nonmedicinal substance allergy status; Z91.041 Radiographic dye allergy status
CPT/HCPCS: 36415; 70450; 74177; 80053; 81001; 83690; 85025; 93005; 96361; 96372; 96374; 99284; J2405; J2550; J7040; Q9967

== ENCOUNTER 2018-12-02 05:56 | Emergency (ER) | payer MEDICAID ==
[2018-12-02] MEDS ORDERED: Ketorolac 30 MG/ML SDV IVPUSH ONE (06:09)
[2018-12-02] MEDS ORDERED: HYDROmorphone 1 MG/ML Syringe IVPUSH ONE (06:09)
[2018-12-02] MEDS ORDERED: Sodium Chloride 0.9% 1,000 ML IV ONE (06:09)
[2018-12-02] MEDS ORDERED: Sodium Chloride 0.9% 10 ML Syringe FLUSH PRN (06:09)
[2018-12-02] MEDS ORDERED: Promethazine 25 MG/ML SDV IM ONE (06:09)
[2018-12-02] MEDS ORDERED: Ondansetron 4 MG/2 ML SDV IVPUSH ONE (06:09)
[2018-12-02] MEDS ORDERED: Sodium Chloride 0.9% 2.5 ML Syringe FLUSH PRN (06:09)
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
[2018-12-02 06:39] LABS: CHLORIDE,CL 102 mmol/L (98-107); SODIUM,NA 140 mmol/L (136-148)
[2018-12-02] MEDS ORDERED: Iopamidol 755 MG/ML 500 ML Multipack Bottle IVPUSH STA (07:05)
--- NOTE | 2018-12-02 08:05 | CT ---
INDICATION: Persistent right-sided abdominal pain. TECHNIQUE: Multiple axial images were obtained from the diaphragm to the symphysis pubis after administration of 100 mL of Isovue-370 intravenously. Sagittal and coronal re-formatted images were obtained. COMPARISON: 11/30/2018. FINDINGS: The visualized portion of the lung bases are clear. There is no focal liver lesion. The spleen, pancreas, gallbladder and adrenal glands unremarkable. There is no mass or hydronephrosis seen in the kidneys. There is no evidence of a bowel obstruction. The appendix is visualized in the right lower quadrant and is unremarkable. The previously described area of concentric density in a loop of bowel in the left pelvis is no longer present. This was likely a transient intussusception on the previous CT scan. There is a trace amount of free fluid in the pelvis. The abdominal aorta is normal in caliber. No adenopathy seen. IMPRESSION: Trace amount of free fluid in the pelvis. Previous described concentric area of density in a loop of small bowel in the left lower quadrant has resolved and was likely a transient intussusception on the previous study. Normal appendix visualized in right lower quadrant. Dictated by Alban Roe MD @ 12/02/2018 8:02:57 AM Please note that all CT scans at this facility use dose modulation, iterative reconstruction, and/or weight-based dosing when appropriate to reduce radiation dose to as low as reasonably achievable. Dictated by: Alban Roe MD @ 12/02/2018 08:03:20 (Electronically Signed)
[2018-12-02 08:28] VITALS: BP 100/52
[2018-12-02] MEDS ORDERED: Hyoscyamine 0.125 MG Tab.SL SL ONE (08:36)
== END 2018-12-02 09:45 | disposition home or self-care (01) ==
LOC: MW.ED 05:56
DX: R10.11 Right upper quadrant pain (principal); R11.2 Nausea with vomiting, unspecified; Z88.8 Allergy status to other drugs, medicaments and biological substances; Z91.018 Allergy to other foods; Z85.118 Personal history of other malignant neoplasm of bronchus and lung
CPT/HCPCS: 74177; 80053; 80305; 81001; 82150; 83605; 83690; 85025; 96361; 96372; 96374; 96375; 99284; A9270; J1170; J1885; J2405; J2550; J7040; Q9967

== ENCOUNTER 2018-12-22 13:41 | Inpatient (IN) | payer MEDICAID, OTHER ==
[2018-12-22 11:52] LABS: BLOOD UREA NITROGEN,BUN 14 mg/dL (7.0-18.0); CARBON DIOXIDE,CO2 25.1 mmol/L (21.0-32.0); CHLORIDE,CL 104 mmol/L (98-107); GLUCOSE RANDOM 84 mg/dL (74-106); POTASSIUM,K 4.2 mmol/L (3.5-5.1); SODIUM,NA 138 mmol/L (136-148)
--- NOTE | 2018-12-22 12:54 | CT ---
INDICATION: Right-sided abdominal pain. History of intussusception. TECHNIQUE: CT abdomen and pelvis acquired with 75 cc Isovue 370 IV contrast. COMPARISON: CT abdomen/pelvis 12/02/2018 and 11/30/2018. FINDINGS: There is a small bowel to small bowel intussusception in the left lower quadrant (series 201 images 76-80, series 203 image 46, series 204 image 86). This is in a slightly different location than on exam of 11/30/2018 and does not definitely involve the same loops of bowel. There is mild fluid filled distention of a few loops of downstream small bowel. No upstream small bowel obstruction. No obvious mass or lead point for the intussusception is identified. The colon is unremarkable. No intraperitoneal free air or fluid. The liver, gallbladder, spleen, pancreas, kidneys, and adrenal glands are negative. Tiny prostate calcification. The bladder is unremarkable. Slight left convex lumbar curve. The lung bases are clear. IMPRESSION: Small bowel to small bowel intussusception in the left lower quadrant. No evidence of bowel obstruction. No definite mass identified as a lead point. Please note that all CT scans at this facility use dose modulation, iterative reconstruction, and/or weight-based dosing when appropriate to reduce radiation dose to as low as reasonably achievable. Dictated by Sarah Begum MD @ Dec 22 2018 12:35PM Signed by Dr. Sarah Begum @ Dec 22 2018 12:53PM
[~2018-12-22 13:41] MED LIST: Iopamidol 755 MG/ML 500 ML Multipack Bottle IVPUSH STA
[2018-12-22] MEDS ORDERED: cefOXitin 1 GM in Premix Bag 1 BAG IV SCH (14:00)
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
[2018-12-22] MEDS ORDERED: Ondansetron 4 MG/2 ML SDV ONE (14:15)
[2018-12-22] MEDS ORDERED: Neostigmine Methylsulfate 1 MG/ML 5 ML Syringe ONE (14:15)
[2018-12-22] MEDS ORDERED: Rocuronium 100 MG/10 ML Syringe ONE (14:15)
[2018-12-22] MEDS ORDERED: Glycopyrrolate 0.2 MG/ML SDV ONE (14:15)
[2018-12-22] MEDS ORDERED: Ketorolac 30 MG/ML SDV ONE (14:15)
[2018-12-22] MEDS ORDERED: Lidocaine 2% 5 ML SDV ONE (14:15)
[2018-12-22] MEDS ORDERED: Propofol 200 MG/20 ML SDV ONE (14:17)
[2018-12-22] MEDS ORDERED: Midazolam 1 MG/ML 2 ML SDV ONE (14:18)
[2018-12-22] MEDS ORDERED: fentaNYL 100 MCG/2 ML SDV ONE ×2 (14:18→15:24)
[2018-12-22] MEDS ORDERED: fentaNYL 250 MCG/5 ML SDV ONE (14:18)
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
[2018-12-22] MEDS ORDERED: Sodium Chloride 0.9% 20 ML ONE (14:26)
[2018-12-22] MEDS ORDERED: cefOXitin 1 GM Vial ONE (14:26)
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
[2018-12-22] MEDS ORDERED: Sugammadex Sodium 200 MG/2 ML VIAL ONE (15:01)
[2018-12-22] MEDS ORDERED: Naloxone 0.4 MG/ML Syringe ONE (15:05)
[2018-12-22] MEDS: HYDROmorphone 2 MG/ML Syringe ONE ×2 (15:32→15:42)
[2018-12-22] MEDS ORDERED: HYDROmorphone 1 MG/ML Syringe IV ONE (15:33)
[2018-12-22] MEDS ORDERED: Acetaminophen 1,000 MG in Premix Bag 1 BAG IV ONE (15:35)
[2018-12-22] MEDS ORDERED: Morphine PF 30 MG/30 ML PCA Vial IV SCH ×2 (15:45→16:00)
--- NOTE | 2018-12-22 15:45 | PCM.OPNOTE ---
- General Post-Op/Procedure Note Date of Surgery/Procedure: 12/22/18 Operative Procedure(s): Exploratory laparotomy Pre Op Diagnosis: Recurrent intussusception with small bowel obstruction Post-Op Diagnosis: No evidence of intussusception at the time of laparotomy Primary Surgeon: Reese Levine Pedodontist: Shelbie Rose Pedodontist: Fatuma Weston Fluid Replacement, Intraop: 1,250 Output, Urine Amount: 75 EBL in mLs: 10 Condition: Good Free Text/Narrative:: DICTATION [id number] CPT CODE 75005
[2018-12-22] MEDS ORDERED: HYDROmorphone 2 MG/ML Syringe ONE (16:05)
[2018-12-22] MEDS ORDERED: HYDROmorphone 1 MG/ML Syringe IVPUSH ONE (16:43)
[2018-12-22] MEDS ORDERED: HYDROmorphone 2 MG/ML Syringe IVPUSH ONE (16:45)
--- NOTE | 2018-12-22 16:53 | PCM.POSTAN ---
POST ANESTHESIA ASSESSMENT - MENTAL STATUS Mental Status: Alert, Oriented - RESPIRATORY Respiratory Status: Respiratory Rate WNL, Airway Patent, O2 Saturation Stable - CARDIOVASCULAR CV Status: Pulse Rate WNL, Blood Pressure Stable - GASTROINTESTINAL GI Status: No Symptoms - PAIN Pain Score: 5 - POST OP HYDRATION Hydration Status: Adequate & Stable - OBSERVATIONS Free Text/Narrative:: No anesthesia problems
[2018-12-22] MEDS: Lactated Ringers 1,000 ML IV SCH ×2 (18:09→23:43)
[2018-12-22] MEDS: LORazepam 2 MG/ML SDV IVPUSH PRN ×2 (18:25→23:47)
[2018-12-22] MEDS: Morphine 10 MG/ML Syringe IVPUSH PRN ×2 (18:26→22:12)
[2018-12-22] MEDS: Ondansetron 4 MG/2 ML SDV IVPUSH PRN (22:33)
[2018-12-23] MEDS: Morphine 10 MG/ML Syringe IVPUSH PRN ×7 (01:19→20:30)
[2018-12-23] MEDS: Ondansetron 4 MG/2 ML SDV IVPUSH PRN ×4 (06:04→22:57)
--- NOTE | 2018-12-23 07:15 | PCM48HPAN ---
Post Anesthesia Note - EVALUATION WITHIN 48HRS OF ANESTHETIC Vital Signs in Normal Range: Yes Patient Participated in Evaluation: Yes Respiratory Function Stable: Yes Airway Patent: Yes Cardiovascular Function Stable: Yes Hydration Status Stable: Yes Pain Control Satisfactory: Yes Nausea and Vomiting Control Satisfactory: Yes Mental Status Recovered: Yes Resp Rate: 15
[2018-12-23] MEDS: Lactated Ringers 1,000 ML IV SCH ×3 (07:34→21:41)
--- NOTE | 2018-12-23 08:05 | PCM.SURGPN ---
- General Info Date of Service: 12/23/18 POD#: 1 Post-Op Diagnosis: partial SBO due to intermittent intussusception Functional Status: Reports: Ambulating, Incentive Spirometry - Review of Systems General: Denies: Fever, Weakness, Fatigue, Malaise HEENT: Denies: No Symptoms Pulmonary: Denies: Shortness of Breath, Cough Gastrointestinal: Reports: Abdominal Pain (incisional), Decreased Appetite. Denies: Nausea, Vomiting Genitourinary: Denies: Dysuria Musculoskeletal: Reports: No Symptoms Skin: Reports: No Symptoms Neurological: Reports: No Symptoms Psychiatric: Reports: Anxiety - Patient Data Vitals - Most Recent: Last Vital Signs Temp 97.7 F 12/23/18 04:00 Pulse 57 L 12/23/18 04:00 Resp 15 12/23/18 07:15 BP 146/74 H 12/23/18 04:00 Pulse Ox 97 12/23/18 04:00 Weight - Most Recent: 132 lb 0.163 oz I&O - Last 24 Hours: Intake & Output 12/22/18 12/23/18 12/23/18 19:59 03:59 11:59 Intake Total 1250 1401 Output Total 150 425 Balance 1100 976 Lab Results Last 24 Hrs: Laboratory Results - last 24 hr 12/22/18 12/22/18 Range/Units 11:17 11:17 WBC 10.69 (4.0-11.0) K/uL RBC 4.90 (4.50-5.90) M/uL Hgb 15.6 (13.0-17.0) g/dL Hct 44.7 (38.0-50.0) % MCV 91.2 (80.0-98.0) fL MCH 31.8 (27.0-32.0) pg MCHC 34.9 (31.0-37.0) g/dL RDW Std Deviation 43.3 (28.0-62.0) fl RDW Coeff of Miles 13 (11.0-15.0) % Plt Count 283 (150-400) K/uL MPV 10.60 (7.40-12.00) fL Neut % (Auto) 66.2 (48.0-80.0) % Lymph % (Auto) 23.5 (16.0-40.0) % Wilson % (Auto) 9.6 (0.0-15.0) % Eos % (Auto) 0.5 (0.0-7.0) % Baso % (Auto) 0.2 (0.0-1.5) % Neut # (Auto) 7.1 H (1.4-5.7) K/uL Lymph # (Auto) 2.5 H (0.6-2.4) K/uL Wilson # (Auto) 1.0 H (0.0-0.8) K/uL Eos # (Auto) 0.1 (0.0-0.7) K/uL Baso # (Auto) 0.0 (0.0-0.1) K/uL Nucleated RBC % 0.0 /100WBC Nucleated RBCs # 0 K/uL Sodium 138 (136-148) mmol/L Potassium 4.2 (3.5-5.1) mmol/L Chloride 104 (98-107) mmol/L Carbon Dioxide 25.1 (21.0-32.0) mmol/L BUN 14 (7.0-18.0) mg/dL Creatinine 0.8 (0.8-1.3) mg/dL Est Cr Clr Drug Dosing TNP Estimated GFR (MDRD) > 60.0 ml/min Glucose 84 (74-106) mg/dL Calcium 9.0 (8.5-10.1) mg/dL Total Bilirubin 0.6 (0.2-1.0) mg/dL AST 18 (15-37) IU/L ALT 31 (14-63) IU/L Alkaline Phosphatase 130 H (46-116) U/L Total Protein 7.2 (6.4-8.2) g/dL Albumin 4.0 (3.4-5.0) g/dL Globulin 3.2 (2.6-4.0) g/dL Albumin/Globulin Ratio 1.3 (0.9-1.6) Med Orders - Current: Current Medications Hydromorphone HCl (Dilaudid) 1 - 2 mg IVPUSH Q6H PRN PRN Reason: Pain (severe 7-10) Cefoxitin Sodium 1 gm/ Premix 50 mls @ 100 mls/hr IV ONETIME NAWAF Lactated Ringer's (Ringers, Lactated) 1,000 mls @ 125 mls/hr IV Q8H NAWAF Last Admin: 12/23/18 07:34 Dose: 125 mls/hr Lorazepam (Ativan) 1 mg IVPUSH Q2H PRN PRN Reason: Anxiety Last Admin: 12/22/18 23:47 Dose: 1 mg Morphine Sulfate (Morphine) 1 - 5 mg IVPUSH .Q30MIN PRN PRN Reason: Pain (moderate 4-6) Last Admin: 12/23/18 07:35 Dose: 5 mg Nicotine Polacrilex (Nicorelief) 2 mg CHEW Q2H PRN PRN Reason: Nicotine withdrawal symptoms Ondansetron HCl (Zofran) 4 mg IVPUSH Q6H PRN PRN Reason: Nausea/Vomiting Last Admin: 12/23/18 06:04 Dose: 4 mg Discontinued Medications Cefoxitin Sodium (Mefoxin) Confirm Administered Dose 1 gm .ROUTE .STK-MED ONE Stop: 12/22/18 14:27 Fentanyl (Sublimaze) Confirm Administered Dose 100 mcg .ROUTE .STK-MED ONE Stop: 12/22/18 14:19 Fentanyl (Sublimaze) Confirm Administered Dose 250 mcg .ROUTE .STK-MED ONE Stop: 12/22/18 14:19 Fentanyl (Sublimaze) Confirm Administered Dose 100 mcg .ROUTE .STK-MED ONE Stop: 12/22/18 15:25 Glycopyrrolate (Robinul) Confirm Administered Dose 0.8 mg .ROUTE .STK-MED ONE Stop: 12/22/18 14:16 Hydromorphone HCl (Dilaudid) Confirm Administered Dose 2 mg .ROUTE .STK-MED ONE Stop: 12/22/18 15:30 Last Admin: 12/22/18 15:42 Dose: 1 mg Hydromorphone HCl (Dilaudid) 0.5 mg IV ONETIME ONE Stop: 12/22/18 15:34 Last Admin: 12/22/18 18:10 Dose: Not Given Hydromorphone HCl (Dilaudid) Confirm Administered Dose 2 mg .ROUTE .STK-MED ONE Stop: 12/22/18 16:06 Last Admin: 12/22/18 16:10 Dose: 0.5 mg Hydromorphone HCl (Dilaudid) 1 mg IVPUSH ONETIME ONE Stop: 12/22/18 16:44 Last Admin: 12/22/18 17:27 Dose: 1 mg Hydromorphone HCl (Dilaudid) 2 mg IVPUSH ONETIME ONE Stop: 12/22/18 16:46 Last Admin: 12/22/18 16:15 Dose: 0.5 mg Sodium Chloride (Normal Saline) Confirm Administered Dose 20 mls @ as directed .ROUTE .STK-MED ONE Stop: 12/22/18 14:27 Acetaminophen (Ofirmev) Confirm Administered Dose 100 mls @ as directed IV .STK- MED ONE Stop: 12/22/18 15:35 Acetaminophen 1,000 mg/ Premix 100 mls @ 400 mls/hr IV NOW ONE Stop: 12/22/18 15:49 Last Admin: 12/22/18 15:49 Dose: 400 mls/hr Iopamidol (Isovue Multipack-370 (76%)) 75 ml IVPUSH ONETIME STA Stop: 12/22/18 11:42 Last Admin: 12/22/18 11:42 Dose: 75 ml Ketorolac Tromethamine (Toradol) Confirm Administered Dose 30 mg .ROUTE .ST- MED ONE Stop: 12/22/18 14:16 Lidocaine (Xylocaine-Mpf 2%) Confirm Administered Dose 5 ml .ROUTE .STK-MED ONE Stop: 12/22/18 14:16 Midazolam HCl (Versed 1 Mg/Ml) Confirm Administered Dose 2 mg .ROUTE .STK-MED ONE Stop: 12/22/18 14:19 Morphine Sulfate (Morphine Practice Performance Manager 30 Mg In 30 Ml) 0 mg IV ASDIRECTED NAWAF; Protocol Naloxone HCl (Narcan) Confirm Administered Dose 0.4 mg .ROUTE .STK-MED ONE Stop: 12/22/18 15:06 Neostigmine Methylsulfate (Neostigmine) Confirm Administered Dose 5 mg .ROUTE .STK-MED ONE Stop: 12/22/18 14:16 Ondansetron HCl (Zofran) Confirm Administered Dose 4 mg .ROUTE .STK-MED ONE Stop: 12/22/18 14:16 Propofol (Diprivan 20 Ml) Confirm Administered Dose 200 mg .ROUTE .STK-MED ONE Stop: 12/22/18 14:18 Rocuronium [place] (Zemuron) Confirm Administered Dose 100 mg .ROUTE .STK-MED ONE Stop: 12/22/18 14:16 Succinylcholine Chloride (Succinylcholine Chloride) Confirm Administered Dose 200 mg .ROUTE .STK-MED ONE Stop: 12/22/18 14:16 Sugammadex Sodium (Bridion) Confirm Administered Dose 200 mg .ROUTE .STK-MED ONE Stop: 12/22/18 15:02 - Exam Wound/Incisions: Dressing Dry and Intact General: Alert, Oriented, Cooperative HEENT: Pupils Equal, Pupils Reactive Neck: Supple Lungs: Clear to Auscultation, Normal Respiratory Effort Cardiovascular: Regular Rate, Regular Rhythm. No: Tachycardia GI/Abdominal Exam: Normal Bowel Sounds, Soft, No Distention, Tender. No: Guarding, Rigid Skin: Warm, Dry Neurological: No New Focal Deficit Psy/Mental Status: Anxious - Problem List & Annotations (1) Intussusception of small bowel SNOMED Code(s): 973437206 Code(s): K56.1 - INTUSSUSCEPTION Status: Acute Priority: High Current Visit: Yes (2) Small bowel obstruction SNOMED Code(s): 121889946 Code(s): K56.609 - UNSP INTESTNL OBST, UNSP TO PARTIAL VERSUS COMPLETE OBST Status: Acute Priority: High Current Visit: Yes (3) Abdominal pain SNOMED Code(s): 21749145 Code(s): R10.9 - UNSPECIFIED ABDOMINAL PAIN Status: Acute Priority: High Current Visit: No Qualifiers: Abdominal location: generalized Qualified Code(s): R10.84 - Generalized abdominal pain - Problem List Review Problem List Initiated/Reviewed/Updated: Yes - My Orders Last 24 Hours: Active Orders 24 hr Category Date Time Status Patient Status [ADT] Routine ADT 12/22/18 15:34 Active Ambulate [RC] ASDIRECTED Care 12/22/18 15:34 Active Antiembolic Devices [RC] PER UNIT ROUTINE Care 12/22/18 13:47 Active Dooley Catheter Insertion [Insert Urinary Catheter] [OM. Care 12/22/18 14:00 Ordered PC] Q24H Intake and Output [RC] Q12H Care 12/22/18 13:46 Active Oxygen Therapy [RC] PRN Care 12/22/18 15:34 Active Positioning, Patient [RC] .INTRAOP Care 12/22/18 13:47 Active RT Incentive Spirometry [RC] Q1HWA Care 12/22/18 15:34 Active Skin Preparation [RC] .PREOP Care 12/22/18 13:47 Active Up ad Sonia [RC] ASDIRECTED Care 12/22/18 13:46 Active Urinary Catheter Assessment [RC] ASDIRECTED Care 12/22/18 13:49 Active VTE/DVT Education [RC] PER UNIT ROUTINE Care 12/22/18 15:37 Active Vital Signs [RC] PER UNIT ROUTINE Care 12/22/18 15:34 Active Nothing Per Oral Diet [DIET] Diet 12/22/18 Lunch Active Soft Diet [DIET] Diet 12/23/18 Lunch Ordered HYDROmorphone [Dilaudid] Med 12/23/18 07:57 Ordered 1 - 2 mg IVPUSH Q6H PRN LORazepam [Ativan] Med 12/22/18 17:29 Active 1 mg IVPUSH Q2H PRN Lactated Ringers [Ringers, Lactated] 1,000 ml Med 12/22/18 14:00 Active IV Q8H Morphine Med 12/22/18 16:07 Active 1 - 5 mg IVPUSH .Q30MIN PRN Nicotine Polacrilex [Nicorelief] Med 12/22/18 19:33 Active 2 mg CHEW Q2H PRN Ondansetron [Zofran] Med 12/22/18 15:34 Active 4 mg IVPUSH Q6H PRN cefOXitin [Mefoxin in Dextrose,Iso-Osm 1 GM/50 ML] 1 gm Med 12/22/18 14:00 Active Premix Bag 1 bag IV ONETIME Antiembolic Hose [OM.PC] Routine Oth 12/22/18 13:47 Ordered DVT/VTE Prophylaxis Reflex [OM.PC] Routine Oth 12/22/18 15:34 Ordered Sequential Compression Device [OM.PC] Routine Oth 12/22/18 13:47 Ordered Resuscitation Status Routine Resus Stat 12/22/18 13:46 Ordered Medication Orders Hydromorphone HCl (Dilaudid) 1 - 2 mg IVPUSH Q6H PRN PRN Reason: Pain (severe 7-10) Cefoxitin Sodium 1 gm/ Premix 50 mls @ 100 mls/hr IV ONETIME NAWAF Lactated Ringer's (Ringers, Lactated) 1,000 mls @ 125 mls/hr IV Q8H NAWAF Last Admin: 12/23/18 07:34 Dose: 125 mls/hr Infusion: 12/23/18 07:34 Dose: 125 mls/hr Admin: 12/22/18 23:43 Dose: 125 mls/hr Infusion: 12/22/18 23:43 Dose: 125 mls/hr Admin: 12/22/18 18:09 Dose: 125 mls/hr Lorazepam (Ativan) 1 mg IVPUSH Q2H PRN PRN Reason: Anxiety Last Admin: 12/22/18 23:47 Dose: 1 mg Admin: 12/22/18 18:25 Dose: 1 mg Morphine Sulfate (Morphine) 1 - 5 mg IVPUSH .Q30MIN PRN PRN Reason: Pain (moderate 4-6) Last Admin: 12/23/18 07:35 Dose: 5 mg Admin: 12/23/18 04:41 Dose: 5 mg Admin: 12/23/18 01:19 Dose: 5 mg Admin: 12/22/18 22:12 Dose: 5 mg Admin: 12/22/18 18:26 Dose: 5 mg Nicotine Polacrilex (Nicorelief) 2 mg CHEW Q2H PRN PRN Reason: Nicotine withdrawal symptoms Ondansetron HCl (Zofran) 4 mg IVPUSH Q6H PRN PRN Reason: Nausea/Vomiting Last Admin: 12/23/18 06:04 Dose: 4 mg Admin: 12/22/18 22:33 Dose: 4 mg - Assessment Assessment (Free Text/Narrative):: Patient has been stable through the night. No N/V. Staff reported smell of smoke in his room during the night. He denies smoking. I did not see cigarettes in his room in his belongings. - Plan Plan (Free Text/Narrative):: Increase activity. Soft diet. PO analgesics. Will try to get Nicorette gum for him.
[2018-12-23] MEDS: HYDROmorphone 2 MG/ML Syringe IVPUSH PRN ×3 (08:51→22:55)
[2018-12-23] MEDS: Nicotine Polacrilex 2 MG Gum CHEW PRN ×4 (10:44→23:11)
[2018-12-23] MEDS: Acetaminophen/HYDROcodone 108-2.5 MG/5 ML Soln 15 ML UD Cup PO PRN (10:44)
[2018-12-23] MEDS: LORazepam 2 MG/ML SDV IVPUSH PRN (21:35)
[2018-12-24] MEDS: Morphine 10 MG/ML Syringe IVPUSH PRN ×3 (00:44→08:16)
[2018-12-24] MEDS: HYDROmorphone 2 MG/ML Syringe IVPUSH PRN ×3 (05:46→21:39)
[2018-12-24] MEDS: Lactated Ringers 1,000 ML IV SCH ×3 (05:46→22:28)
[2018-12-24] MEDS: Nicotine Polacrilex 2 MG Gum CHEW PRN ×5 (05:52→22:36)
[2018-12-24] MEDS: Ondansetron 4 MG/2 ML SDV IVPUSH PRN ×4 (05:54→22:57)
[2018-12-24] MEDS: LORazepam 2 MG/ML SDV IVPUSH PRN ×4 (09:20→22:33)
[2018-12-24] MEDS ORDERED: Docusate Sodium 100 MG Cap PO PRN (09:35)
--- NOTE | 2018-12-24 09:43 | PCM.SURGPN ---
- General Info Date of Service: 12/24/18 POD#: 2 Post-Op Diagnosis: Exploratory laparotomy for radiologic intussusception and abdominal pain. Functional Status: Reports: Pain Controlled, Tolerating Diet, Ambulating, Urinating. Denies: New Symptoms - Review of Systems General: Denies: Fever, Weakness, Fatigue, Malaise, Chills HEENT: Reports: No Symptoms Pulmonary: Denies: Shortness of Breath, Cough Cardiovascular: Denies: Chest Pain Gastrointestinal: Reports: Abdominal Pain (incisional), Decreased Appetite, Nausea, Vomiting (very small emeses). Denies: Constipation, Diarrhea, Flatus, Hematochezia, Melena Genitourinary: Denies: Dysuria, Frequency, Burning, Pain, Urgency Musculoskeletal: Reports: No Symptoms Skin: Reports: No Symptoms Neurological: Reports: No Symptoms Psychiatric: Reports: Anxiety - Patient Data Vitals - Most Recent: Last Vital Signs Temp 97 F 12/24/18 07:20 Pulse 72 12/24/18 07:20 Resp 16 12/24/18 07:20 BP 144/67 H 12/24/18 07:20 Pulse Ox 96 12/24/18 07:20 Weight - Most Recent: 132 lb 0.163 oz I&O - Last 24 Hours: Intake & Output 12/23/18 12/24/18 12/24/18 19:59 03:59 11:59 Intake Total 170 476 8202 Output Total 900 Balance 240 -560 3094 Med Orders - Current: Current Medications Hydrocodone Bitart/Acetaminophen (Acetaminophen/Hydrocodone 108-2.5 Mg/5 Ml) 15 ml PO Q4H PRN PRN Reason: Pain (moderate 4-6) Last Admin: 12/23/18 10:44 Dose: 15 ml Docusate Sodium (Colace) 100 mg PO DAILY PRN PRN Reason: Constipation Hydromorphone HCl (Dilaudid) 1 - 2 mg IVPUSH Q6H PRN PRN Reason: Pain (severe 7-10) Last Admin: 12/24/18 05:46 Dose: 2 mg Cefoxitin Sodium 1 gm/ Premix 50 mls @ 100 mls/hr IV ONETIME NAWAF Lactated Ringer's (Ringers, Lactated) 1,000 mls @ 125 mls/hr IV Q8H NAWAF Last Admin: 12/24/18 05:46 Dose: 125 mls/hr Lorazepam (Ativan) 1 mg IVPUSH Q2H PRN PRN Reason: Anxiety Last Admin: 12/24/18 09:20 Dose: 1 mg Morphine Sulfate (Morphine) 1 - 5 mg IVPUSH .Q30MIN PRN PRN Reason: Pain (moderate 4-6) Last Admin: 12/24/18 08:16 Dose: 5 mg Nicotine Polacrilex (Nicorelief) 2 mg CHEW Q2H PRN PRN Reason: Nicotine withdrawal symptoms Last Admin: 12/24/18 08:20 Dose: 2 mg Ondansetron HCl (Zofran) 4 mg IVPUSH Q6H PRN PRN Reason: Nausea/Vomiting Last Admin: 12/24/18 05:54 Dose: 4 mg Discontinued Medications Cefoxitin Sodium (Mefoxin) Confirm Administered Dose 1 gm .ROUTE .STK-MED ONE Stop: 12/22/18 14:27 Fentanyl (Sublimaze) Confirm Administered Dose 100 mcg .ROUTE .STK-MED ONE Stop: 12/22/18 14:19 Fentanyl (Sublimaze) Confirm Administered Dose 250 mcg .ROUTE .STK-MED ONE Stop: 12/22/18 14:19 Fentanyl (Sublimaze) Confirm Administered Dose 100 mcg .ROUTE .STK-MED ONE Stop: 12/22/18 15:25 Glycopyrrolate (Robinul) Confirm Administered Dose 0.8 mg .ROUTE .STK-MED ONE Stop: 12/22/18 14:16 Hydromorphone HCl (Dilaudid) Confirm Administered Dose 2 mg .ROUTE .STK-MED ONE Stop: 12/22/18 15:30 Last Admin: 12/22/18 15:42 Dose: 1 mg Hydromorphone HCl (Dilaudid) 0.5 mg IV ONETIME ONE Stop: 12/22/18 15:34 Last Admin: 12/22/18 18:10 Dose: Not Given Hydromorphone HCl (Dilaudid) Confirm Administered Dose 2 mg .ROUTE .STK-MED ONE Stop: 12/22/18 16:06 Last Admin: 12/22/18 16:10 Dose: 0.5 mg Hydromorphone HCl (Dilaudid) 1 mg IVPUSH ONETIME ONE Stop: 12/22/18 16:44 Last Admin: 12/22/18 17:27 Dose: 1 mg Hydromorphone HCl (Dilaudid) 2 mg IVPUSH ONETIME ONE Stop: 12/22/18 16:46 Last Admin: 12/22/18 16:15 Dose: 0.5 mg Sodium Chloride (Normal Saline) Confirm Administered Dose 20 mls @ as directed .ROUTE .STK-MED ONE Stop: 12/22/18 14:27 Acetaminophen (Ofirmev) Confirm Administered Dose 100 mls @ as directed IV .STK- MED ONE Stop: 12/22/18 15:35 Acetaminophen 1,000 mg/ Premix 100 mls @ 400 mls/hr IV NOW ONE Stop: 12/22/18 15:49 Last Admin: 12/22/18 15:49 Dose: 400 mls/hr Iopamidol (Isovue Multipack-370 (76%)) 75 ml IVPUSH ONETIME STA Stop: 12/22/18 11:42 Last Admin: 12/22/18 11:42 Dose: 75 ml Ketorolac Tromethamine (Toradol) Confirm Administered Dose 30 mg .ROUTE .STK- MED ONE Stop: 12/22/18 14:16 Lidocaine (Xylocaine-Mpf 2%) Confirm Administered Dose 5 ml .ROUTE .STK-MED ONE Stop: 12/22/18 14:16 Midazolam HCl (Versed 1 Mg/Ml) Confirm Administered Dose 2 mg .ROUTE .STK-MED ONE Stop: 12/22/18 14:19 Morphine Sulfate (Morphine Electrical Project Engineer 30 Mg In 30 Ml) 0 mg IV ASDIRECTED NAWAF; Protocol Naloxone HCl (Narcan) Confirm Administered Dose 0.4 mg .ROUTE .STK-MED ONE Stop: 12/22/18 15:06 Neostigmine Methylsulfate (Neostigmine) Confirm Administered Dose 5 mg .ROUTE .STK-MED ONE Stop: 12/22/18 14:16 Ondansetron HCl (Zofran) Confirm Administered Dose 4 mg .ROUTE .STK-MED ONE Stop: 12/22/18 14:16 Propofol (Diprivan 20 Ml) Confirm Administered Dose 200 mg .ROUTE .STK-MED ONE Stop: 12/22/18 14:18 Rocuronium [place] (Zemuron) Confirm Administered Dose 100 mg .ROUTE .STK-MED ONE Stop: 12/22/18 14:16 Succinylcholine Chloride (Succinylcholine Chloride) Confirm Administered Dose 200 mg .ROUTE .STK-MED ONE Stop: 12/22/18 14:16 Sugammadex Sodium (Bridion) Confirm Administered Dose 200 mg .ROUTE .STK-MED ONE Stop: 12/22/18 15:02 - Exam Wound/Incisions: Healing Well, No Drainage. No: Erythema General: Alert, Oriented, Cooperative, Mild Distress HEENT: Pupils Equal, Pupils Reactive Neck: Supple, Trachea Midline Lungs: Clear to Auscultation, Normal Respiratory Effort Cardiovascular: Regular Rate, Regular Rhythm, No Murmurs. No: Tachycardia GI/Abdominal Exam: Normal Bowel Sounds, Soft, Non-Tender, Other (Abdominal incision is healing well. Minimal bruising. No erythema, no drainage.). No: Guarding, Rigid, Rebound Extremities: Normal Inspection Skin: Warm, Dry, Intact Neurological: No New Focal Deficit Psy/Mental Status: Alert, Normal Affect - Problem List & Annotations (1) Intussusception of small bowel SNOMED Code(s): 105279168 Code(s): K56.1 - INTUSSUSCEPTION Status: Acute Priority: High Current Visit: Yes (2) Small bowel obstruction SNOMED Code(s): 362764904 Code(s): K56.609 - UNSP INTESTNL OBST, UNSP TO PARTIAL VERSUS COMPLETE OBST Status: Acute Priority: High Current Visit: Yes (3) Abdominal pain SNOMED Code(s): 18593414 Code(s): R10.9 - UNSPECIFIED ABDOMINAL PAIN Status: Acute Priority: High Current Visit: No Qualifiers: Abdominal location: generalized Qualified Code(s): R10.84 - Generalized abdominal pain - Problem List Review Problem List Initiated/Reviewed/Updated: Yes - My Orders Last 24 Hours: Active Orders 24 hr Category Date Time Status Soft Diet [DIET] Diet 12/23/18 Lunch Active Docusate Sodium [Colace] Med 12/24/18 09:35 Active 100 mg PO DAILY PRN Medication Orders Hydrocodone Bitart/Acetaminophen (Acetaminophen/Hydrocodone 108-2.5 Mg/5 Ml) 15 ml PO Q4H PRN PRN Reason: Pain (moderate 4-6) Last Admin: 12/23/18 10:44 Dose: 15 ml Docusate Sodium (Colace) 100 mg PO DAILY PRN PRN Reason: Constipation Hydromorphone HCl (Dilaudid) 1 - 2 mg IVPUSH Q6H PRN PRN Reason: Pain (severe 7-10) Last Admin: 12/24/18 05:46 Dose: 2 mg Admin: 12/23/18 22:55 Dose: 2 mg Admin: 12/23/18 16:55 Dose: 2 mg Admin: 12/23/18 08:51 Dose: 2 mg Cefoxitin Sodium 1 gm/ Premix 50 mls @ 100 mls/hr IV ONETIME NAWAF Lactated Ringer's (Ringers, Lactated) 1,000 mls @ 125 mls/hr IV Q8H NAAWF Last Admin: 12/24/18 05:46 Dose: 125 mls/hr Infusion: 12/24/18 05:41 Dose: 125 mls/hr Admin: 12/23/18 21:41 Dose: 125 mls/hr Infusion: 12/23/18 21:41 Dose: 125 mls/hr Admin: 12/23/18 14:03 Dose: 125 mls/hr Infusion: 12/23/18 14:03 Dose: 125 mls/hr Admin: 12/23/18 07:34 Dose: 125 mls/hr Infusion: 12/23/18 07:34 Dose: 125 mls/hr Admin: 12/22/18 23:43 Dose: 125 mls/hr Infusion: 12/22/18 23:43 Dose: 125 mls/hr Admin: 12/22/18 18:09 Dose: 125 mls/hr Lorazepam (Ativan) 1 mg IVPUSH Q2H PRN PRN Reason: Anxiety Last Admin: 12/24/18 09:20 Dose: 1 mg Admin: 12/23/18 21:35 Dose: 1 mg Admin: 12/22/18 23:47 Dose: 1 mg Admin: 12/22/18 18:25 Dose: 1 mg Morphine Sulfate (Morphine) 1 - 5 mg IVPUSH .Q30MIN PRN PRN Reason: Pain (moderate 4-6) Last Admin: 12/24/18 08:16 Dose: 5 mg Admin: 12/24/18 02:05 Dose: 5 mg Admin: 12/24/18 00:44 Dose: 5 mg Admin: 12/23/18 20:30 Dose: 5 mg Admin: 12/23/18 19:33 Dose: 5 mg Admin: 12/23/18 14:06 Dose: 5 mg Admin: 12/23/18 11:55 Dose: 5 mg Admin: 12/23/18 07:35 Dose: 5 mg Admin: 12/23/18 04:41 Dose: 5 mg Admin: 12/23/18 01:19 Dose: 5 mg Admin: 12/22/18 22:12 Dose: 5 mg Admin: 12/22/18 18:26 Dose: 5 mg Nicotine Polacrilex (Nicorelief) 2 mg CHEW Q2H PRN PRN Reason: Nicotine withdrawal symptoms Last Admin: 12/24/18 08:20 Dose: 2 mg Admin: 12/24/18 05:52 Dose: 2 mg Admin: 12/23/18 23:11 Dose: 2 mg Admin: 12/23/18 20:24 Dose: 2 mg Admin: 12/23/18 14:10 Dose: 2 mg Admin: 12/23/18 10:44 Dose: 2 mg Ondansetron HCl (Zofran) 4 mg IVPUSH Q6H PRN PRN Reason: Nausea/Vomiting Last Admin: 12/24/18 05:54 Dose: 4 mg Admin: 12/23/18 22:57 Dose: 4 mg Admin: 12/23/18 16:53 Dose: 4 mg Admin: 12/23/18 11:47 Dose: 4 mg Admin: 12/23/18 06:04 Dose: 4 mg Admin: 12/22/18 22:33 Dose: 4 mg - Assessment Assessment (Free Text/Narrative):: Patient is stable. Still quite anxious but this is a chronic problem with his PTSD. It hasn't worsened in the hospital. - Plan Plan (Free Text/Narrative):: Increase activity. Push po intake. Encouraged to wean off parenteral analgesics and try to use po analgesics. Possible discharge 12/25.
[2018-12-24] MEDS: Acetaminophen/HYDROcodone 108-2.5 MG/5 ML Soln 15 ML UD Cup PO PRN (16:55)
[2018-12-24] MEDS ORDERED: Hyoscyamine 0.125 MG Tab.SL SL SCH (18:30)
[2018-12-24] MEDS ORDERED: Hyoscyamine 0.125 MG Tab.SL SL PRN (21:00)
[2018-12-24 23:56] VITALS: BP 131/79; PULSE 56
--- NOTE | 2018-12-25 13:15 | OR ---
SURGEON: Reese Levine M.D. DATE OF PROCEDURE: 12/22/2018 OPERATION PERFORMED: Exploratory laparotomy. ASSISTANTS: administrative assistant office manager: Dr. Rose. Second assistant foreman: Fatuma Weston, [id number]. ANESTHESIA: General endotracheal. ASA CLASSIFICATION: IIE. PREOPERATIVE DIAGNOSIS: Recurrent small-bowel obstruction secondary to intussusception. POSTOPERATIVE DIAGNOSIS: No evidence of intussusception. INTRAOPERATIVE FLUID REPLACEMENT: 1250 mL of crystalloid. URINE OUTPUT: 75 mL. ESTIMATED BLOOD LOSS: 10 mL. DESCRIPTION OF PROCEDURE: The patient was taken to the operating room and placed on the operating table in the supine position. Time-out was called for appropriate identification of the patient and procedure. Thigh-high TEDs and sequential compression boots were placed. Following satisfactory attainment of general anesthesia, a Dooley catheter was placed in the patient's urinary bladder. The abdomen was prepped with DuraPrep solution, and sterile drapes were applied. The skin incision was made beginning longterm between the umbilicus and xiphoid superiorly extending to longterm between the umbilicus and symphysis pubis inferiorly. The incision was carried to the left around the umbilicus and deepened through the very limited subcutaneous tissue. Hemostasis was obtained with the use of electrocautery. The fascia was opened in the midline and the peritoneal cavity was entered. There was no significant fluid and no obvious foul odor or bowel present. The small bowel was delivered into the wound and examined in both an antegrade and retrograde fashion initially from the ileocecal valve in a retrograde fashion to the ligament of Treitz and then milking all of the small bowel contents forward from the ligament of Treitz to the ileocecal valve. The appendix was seen in the base of the wound and was not inflamed. There was no evidence of an intraluminal mass anywhere along the course of the entire length of the small bowel. With that finding and with no significant adhesions causing obstruction, no obvious etiology for the radiologically diagnosed intussusception could be identified. The abdomen was then carefully examined and no other fluid was noted. As the bowel was not entered, no irrigation was done. The fascia was then closed with a running #1 looped PDS suture. The inferior portion was reinforced with interrupted 0 Ethibond. The subcutaneous tissue was reapproximated with running 3-0 Vicryl, and the skin edges were reapproximated with skin clips. Sterile dressing was applied and taped securely in place. Sponge, needle, and instrument counts were all correct. Dooley catheter was removed prior to emergence from anesthesia. Following emergence from anesthesia and extubation, the patient was taken to recovery room in stable condition. AIDE SILVA /[id number] JUAN
== END 2018-12-25 00:15 | disposition left against medical advice (07) | DRG 331 ==
LOC: MW.SDS 13:41 → MW.MS 15:36
PROVIDERS: ADMIT Surgery; ATTEND Surgery
PROC: 0DS80ZZ Reposition Small Intestine, Open Approach (ICD-10-PCS; principal; 2018-12-22)
DX: K56.1 Intussusception (principal); K56.609 Unspecified intestinal obstruction, unspecified as to partial versus complete obstruction; M19.90 Unspecified osteoarthritis, unspecified site; F41.9 Anxiety disorder, unspecified; F32.9 Major depressive disorder, single episode, unspecified; F43.10 Post-traumatic stress disorder, unspecified; G89.29 Other chronic pain; F17.210 Nicotine dependence, cigarettes, uncomplicated; Z91.041 Radiographic dye allergy status; Z91.048 Other nonmedicinal substance allergy status; Z85.118 Personal history of other malignant neoplasm of bronchus and lung; Z87.442 Personal history of urinary calculi
CPT/HCPCS: 00840; 36415; 74177; 74177-26; 80053; 85025; A9270-GY; J0131; J0330; J0694; J1170; J1885; J2001; J2060; J2250; J2270; J2405; J2704; J3010; J3490; J7120; Q9967

== ENCOUNTER 2019-03-04 22:14 | Emergency (ER) | payer MEDICAID ==
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
[2019-03-04] MEDS ORDERED: Bacitracin Oint 1 GM U/D Packet TOP ONE ×2 (23:00)
[2019-03-04] MEDS ORDERED: Bacitracin Oint 1 GM U/D Packet ONE (23:02)
[2019-03-04 23:07] VITALS: BP 129/60; PULSE 85
== END 2019-03-04 23:09 | disposition home or self-care (01) ==
LOC: MW.ED 22:14
DX: S01.81XA Laceration without foreign body of other part of head, initial encounter (principal); R55 Syncope and collapse; F17.210 Nicotine dependence, cigarettes, uncomplicated; Z91.048 Other nonmedicinal substance allergy status; Z91.041 Radiographic dye allergy status; W22.8XXA Striking against or struck by other objects, initial encounter
CPT/HCPCS: 93005; 99283

== ENCOUNTER 2019-05-31 10:38 | Emergency (ER) | payer MEDICAID ==
[2019-05-31 10:48] VITALS: BP 112/74; PULSE 74
[2019-05-31] MEDS ORDERED: Ketorolac 15 MG/ML SDV IVPUSH ONE (11:21)
[2019-05-31] MEDS ORDERED: Cyclobenzaprine 10 MG Tab PO ONE (12:05)
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
[2019-05-31 12:19] LABS: BLOOD UREA NITROGEN,BUN 14 mg/dL (7.0-18.0); CARBON DIOXIDE,CO2 30.7 mmol/L (21.0-32.0); CHLORIDE,CL 100 mmol/L (98-107); GLUCOSE RANDOM 94 mg/dL (74-106); POTASSIUM,K 3.7 mmol/L (3.5-5.1); SODIUM,NA 140 mmol/L (136-148)
--- NOTE | 2019-05-31 14:53 | MR ---
MRI thoracic spine Technique: T2-weighted axial images were obtained through the lumbar spine. T1, T2 and fat-suppressed sagittal images were obtained. Findings: Schmorl node deformities are seen within the lower thoracic spine and upper lumbar spine. Posterior discs are preserved. No disc herniation is seen. No central canal stenosis or neural foraminal stenosis is seen. There is motion artifact being seen. Thoracic cord shows no abnormal signal or mass. Mild scoliosis is noted. Impression: 1. Motion artifact. 2. Schmorl node deformities within lower thoracic and upper lumbar spine. 3. No acute abnormality is identified on MRI study of the thoracic spine. Diagnostic code #2 This report was dictated in [place] Standard Time
--- NOTE | 2019-05-31 14:53 | MR ---
MRI lumbar spine Technique: T1 and T2-weighted axial images were obtained from above T12-L1 disc the L5-S1 disc. T1, T2 and fat suppressed inversion recovery sagittal images were obtained. Comparison: Prior CT lumbar spine study of 02/03/17 is available. Plain film lumbar spine study of 06/10/17 is available. Findings: T11-12: Small Schmorl node deformities are seen. Posterior disc is preserved. No central canal stenosis or neural foraminal stenosis is seen. T12-L1: Schmorl node deformities are seen. Very minimal circumferential disc bulge is present. Posterior disc maintains concave margin. No central canal stenosis or neural foraminal stenosis is seen. L1-2: Very minimal circumferential disc bulge is seen. Posterior disc maintains concave margin. No central canal stenosis or neural foraminal stenosis seen. L2-3: Minimal circumferential disc bulge is seen. Posterior disc maintains concave margin. No central canal stenosis is seen. L3-4: Slight circumferential disc bulge is noted. Posterior disc maintains concave margin. No central canal stenosis or neural foraminal stenosis seen. L4-5: Slight circumferential disc bulge is seen. Mild asymmetric posterolateral disc bulge is seen into the neural foramina. There is increased signal within the adjacent annulus compatible small annular tear. Disc bulge appears to slightly touch the exiting right L4 nerve root. Left neural foramina the nerve root exits. Degenerative dehydration change noted within the disc. L5-S1: Posterior disc space narrowing is seen. Minimal posterior disc bulge is seen believed to be physiologic. No central canal stenosis or neural foraminal stenosis is seen. Conus medullaris and cauda equina shows no abnormal signal or mass. Impression: 1. Slight degenerative change as noted above. Most prominent finding is asymmetric disc bulge at L4-5 into the right neural foramina slightly touching the right L4 nerve root. Diagnostic code #3 This report was dictated in [place] Standard Time
[2019-05-31] MEDS ORDERED: Morphine 10 MG/ML Syringe IVPUSH ONE (15:17)
== END 2019-05-31 16:05 | disposition home or self-care (01) ==
LOC: MW.ED 10:38
DX: M51.26 Other intervertebral disc displacement, lumbar region (principal); F17.210 Nicotine dependence, cigarettes, uncomplicated; Z91.041 Radiographic dye allergy status; Z79.899 Other long term (current) drug therapy; Z85.118 Personal history of other malignant neoplasm of bronchus and lung
CPT/HCPCS: 36415; 72146; 72148; 80053; 85025; 96374; 96375; 99285; A9270; J1885; J2270

== ENCOUNTER 2019-09-11 12:55 | Observation (INO) | payer MEDICAID ==
[2019-09-11] MEDS ORDERED: Sodium Chloride 0.9% 10 ML Syringe FLUSH PRN (13:23)
[2019-09-11] MEDS ORDERED: Sodium Chloride 0.9% 1,000 ML IV ONE (13:23)
[2019-09-11] MEDS ORDERED: Sodium Chloride 0.9% 2.5 ML Syringe FLUSH PRN (13:23)
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
[2019-09-11 14:20] LABS: BLOOD UREA NITROGEN,BUN 8 mg/dL (7.0-18.0); CARBON DIOXIDE,CO2 29.9 mmol/L (21.0-32.0); CHLORIDE,CL 98 mmol/L (98-107); GLUCOSE RANDOM 105 mg/dL (74-106); POTASSIUM,K 3.6 mmol/L (3.5-5.1); SODIUM,NA 138 mmol/L (136-148)
--- NOTE | 2019-09-11 15:50 | CT ---
CT abdomen and pelvis Technique: Multiple axial sections were obtained from above the dome of the diaphragm inferiorly through the pubic symphysis. Intravenous contrast was utilized. No oral contrast has been given. Comparison: Previous CT abdomen and pelvis exam of 12/22/18. Findings: Visualized lung bases shows nothing acute. Liver contains no focal abnormality. Gallbladder contains no calcified gallstones. Small hiatal hernia is noted. Spleen appears within normal limits. Kidneys show symmetric contrast enhancement without hydronephrosis or mass. Contrast excretion is noted from both kidneys as well as contrast being seen within the bladder. Adrenal glands show no nodule. Pancreas shows no discrete abnormality. Aorta shows no aneurysm. No retroperitoneal adenopathy or mesenteric abnormalities are seen. No pelvic mass or adenopathy is identified. Appendix not visualized with certainty. No free fluid or inflammatory change is seen. Low density area is seen next to the posterior rectum which is felt to be within the perirectal soft tissues. Rectal contrast would be needed to confirm. Small amount of air is seen within this region. Findings are suspicious for perirectal abscess measuring about 4.5 cm x 2.0 cm. Bone window settings were reviewed which shows no acute osseous finding. Impression: 1. Low density collection within the posterior perirectal soft tissues. This is believed to be outside the rectal lumen although rectal contrast study would be needed to confirm. This finding is suspicious for perirectal abscess. 2. No additional abnormality is appreciated on CT study of the abdomen and pelvis. Diagnostic code #3 This report was dictated in MDT
[2019-09-11] MEDS ORDERED: Ampicillin/Sulbactam Na 1.5 GM in Sodium Chloride 0.9% 50 ML IV ONE ×3 (16:06→16:45)
[2019-09-11] MEDS ORDERED: metroNIDAZOLE/Normal Saline 500 MG in Premix Bag 1 BAG IV ONE (16:06)
--- NOTE | 2019-09-11 18:02 | CT ---
CT pelvis Technique: Multiple axial sections through the pelvis were obtained. Intravenous contrast was not utilized. Rectal contrast was given. Reconstructed coronal and sagittal images were obtained. Comparison: Previous CT abdomen and pelvis study performed earlier on the same day (3:22 PM). Findings: Low density area lies within the rectal wall posteriorly. This is separate from the rectal lumen. Size as previously described. This finding occurs approximately 3.8 cm from the external sphincter. Impression: 1. Low density area within the rectal wall posteriorly separate from the rectal lumen. Finding occurs approximately 3.8 cm from the external sphincter. Difficult to exclude abscess as previously described. Diagnostic code #3 This report was dictated in MDT
[2019-09-11] MEDS ORDERED: Iopamidol 755 Mg/ML 100 ML Bottle IVPUSH STA (18:37)
[2019-09-11] MEDS: Clindamycin Phosphate in D5W 300 MG in Premix Bag 1 BAG IV SCH ×4 (21:17→23:43)
[2019-09-11] MEDS: Lactated Ringers 1,000 ML IV SCH (21:19)
[2019-09-11] MEDS: Morphine 2 MG/ML Syringe IVPUSH PRN (21:19)
[2019-09-11] MEDS: Nicotine 14 MG/24 Hr Patch TRDERM SCH (22:00)
[2019-09-12] MEDS: Morphine 2 MG/ML Syringe IVPUSH PRN ×3 (01:21→09:54)
[2019-09-12] MEDS: Clindamycin Phosphate in D5W 300 MG in Premix Bag 1 BAG IV SCH ×4 (03:58→09:53)
[2019-09-12] MEDS: Lactated Ringers 1,000 ML IV SCH (05:46)
[2019-09-12 05:51] LABS: BLOOD UREA NITROGEN,BUN 8 mg/dL (7.0-18.0); CARBON DIOXIDE,CO2 25.8 mmol/L (21.0-32.0); CHLORIDE,CL 103 mmol/L (98-107); GLUCOSE RANDOM 105 mg/dL (74-106); POTASSIUM,K 3.6 mmol/L (3.5-5.1); SODIUM,NA 139 mmol/L (136-148)
--- NOTE | 2019-09-12 08:05 | CONS ---
DATE OF CONSULTATION: 09/11/2019 DATE OF : 1985 PRIMARY CARE PHYSICIAN: None PCP REASON FOR CONSULTATION: This is a consult from the emergency room physician. Concerning question is perirectal abscess. HISTORY OF PRESENT ILLNESS: The patient is a 34-year-old gentleman with multiple surgeries, at least 10 of them, in the past, who complained of gradual onset of perirectal pain every time he has a bowel movement. It has been going on for about 10 to 12 days. Sought help in the emergency room. CAT scan shows a possible perirectal abscess with white count 19, and Surgery was then consulted. PAST MEDICAL HISTORY: The patient has lung cancer and on chemotherapy, finished 1 month ago, and had multiple orthopedic procedures on 4 extremities and also had exploratory laparotomy 6 months ago. PAST SURGICAL HISTORY: The patient has a lobectomy on the right side in the past for lung cancer. ALLERGIES: Please refer to nursing for details. MEDICATIONS: Please refer to nursing for details. PAST FAMILY HISTORY: Noncontributory. Malignant hyperthermia, no history. PHYSICAL EXAMINATION: GENERAL: A very pleasant, nice gentleman, moving around, in no acute distress. HEENT: Normocephalic and atraumatic. Sclerae are anicteric. LUNGS: Clear to auscultation. HEART: Regular rate and rhythm. ABDOMEN: Soft, nondistended. No pulsating tender midline abdominal structure. RECTAL: Perineum area is completely normal in appearance. On palpation, has some tenderness in the sacrum area and the perineum area, but again there is no cellulitis or drainage. IMPRESSION: After discussion with the radiologist regarding the CAT scan, he recommends rectal contrast CT to be more able to delineate the situation. The patient is waiting for rectal contrast CT scan. Currently, we are waiting for the repeat CAT scan, and after that, the patient will be admitted for observation or possible surgical drainage. THERESA / RICARDO /[id number]
[2019-09-12] MEDS: Nicotine 14 MG/24 Hr Patch TRDERM SCH (09:57)
--- NOTE | 2019-09-12 10:00 | PCM.SURGPN ---
- General Info Date of Service: 09/12/19 Functional Status: Reports: Pain Controlled - Patient Data Vitals - Most Recent: Last Vital Signs Temp 99.1 F 09/12/19 03:56 Pulse 86 09/12/19 03:56 Resp 16 09/12/19 03:56 BP 127/81 09/12/19 03:56 Pulse Ox 97 09/12/19 03:56 Weight - Most Recent: 150 lb 2.157 oz I&O - Last 24 Hours: Intake & Output 09/11/19 09/12/19 09/12/19 22:59 06:59 14:59 Intake Total 882 Output Total 220 Balance 662 Lab Results Last 24 Hrs: Laboratory Results - last 24 hr 09/11/19 09/11/19 09/11/19 Range/Units 13:45 13:45 14:12 WBC 19.32 H (4.0-11.0) K/uL RBC 5.06 (4.50-5.90) M/uL Hgb 15.8 (13.0-17.0) g/dL Hct 45.9 (38.0-50.0) % MCV 90.7 (80.0-98.0) fL MCH 31.2 (27.0-32.0) pg MCHC 34.4 (31.0-37.0) g/dL RDW Std Deviation 41.8 (28.0-62.0) fl RDW Coeff of Miles 13 (11.0-15.0) % Plt Count 271 (150-400) K/uL MPV 10.10 (7.40-12.00) fL Neut % (Auto) 79.2 (48.0-80.0) % Lymph % (Auto) 10.5 L (16.0-40.0) % [place] % (Auto) 10.1 (0.0-15.0) % Eos % (Auto) 0.0 (0.0-7.0) % Baso % (Auto) 0.2 (0.0-1.5) % Neut # (Auto) 15.3 H (1.4-5.7) K/uL Lymph # (Auto) 2.0 (0.6-2.4) K/uL [place] # (Auto) 2.0 H (0.0-0.8) K/uL Eos # (Auto) 0.0 (0.0-0.7) K/uL Baso # (Auto) 0.0 (0.0-0.1) K/uL Nucleated RBC % 0.0 /100WBC Nucleated RBCs # 0 K/uL Lactate 1.5 (0.20-2.00) mmol/L Sodium 138 (136-148) mmol/L Potassium 3.6 (3.5-5.1) mmol/L Chloride 98 (98-107) mmol/L Carbon Dioxide 29.9 (21.0-32.0) mmol/L BUN 8 (7.0-18.0) mg/dL Creatinine 0.9 (0.8-1.3) mg/dL Est Cr Clr Drug Dosing 114.91 mL/min Estimated GFR (MDRD) > 60.0 ml/min Glucose 105 (74-106) mg/dL Calcium 9.6 (8.5-10.1) mg/dL Total Bilirubin 1.1 H (0.2-1.0) mg/dL AST 20 (15-37) IU/L ALT 26 (14-63) IU/L Alkaline Phosphatase 119 H (46-116) U/L Total Protein 8.0 (6.4-8.2) g/dL Albumin 3.9 (3.4-5.0) g/dL Globulin 4.1 H (2.6-4.0) g/dL Albumin/Globulin Ratio 1.0 (0.9-1.6) Urine Color Urine Appearance Urine pH (5.0-8.0) Ur Specific [place] (1.001-1.035) Urine Protein (NEGATIVE) mg/dL Urine Glucose (UA) (NEGATIVE) mg/dL Urine Ketones (NEGATIVE) mg/dL Urine Occult Blood (NEGATIVE) Urine Nitrite (NEGATIVE) Urine Bilirubin (NEGATIVE) Urine Ictotest Urine Urobilinogen (<2.0) EU/dL Ur Leukocyte Esterase (NEGATIVE) Urine RBC (0-2/HPF) Urine WBC (0-5/HPF) Ur Epithelial Cells (NONE-FEW) Urine Bacteria (NEGATIVE) Urine Mucus (NONE-MOD) 09/11/19 09/12/19 09/12/19 Range/Units 15:00 05:05 05:05 WBC 18.72 H (4.0-11.0) K/uL RBC 4.71 (4.50-5.90) M/uL Hgb 14.7 (13.0-17.0) g/dL Hct 42.8 (38.0-50.0) % MCV 90.9 (80.0-98.0) fL MCH 31.2 (27.0-32.0) pg MCHC 34.3 (31.0-37.0) g/dL RDW Std Deviation 42.0 (28.0-62.0) fl RDW Coeff of Miles 13 (11.0-15.0) % Plt Count 278 (150-400) K/uL MPV 10.70 (7.40-12.00) fL Neut % (Auto) 78.1 (48.0-80.0) % Lymph % (Auto) 10.7 L (16.0-40.0) % [place] % (Auto) 10.8 (0.0-15.0) % Eos % (Auto) 0.2 (0.0-7.0) % Baso % (Auto) 0.2 (0.0-1.5) % Neut # (Auto) 14.6 H (1.4-5.7) K/uL Lymph # (Auto) 2.0 (0.6-2.4) K/uL [place] # (Auto) 2.0 H (0.0-0.8) K/uL Eos # (Auto) 0.0 (0.0-0.7) K/uL Baso # (Auto) 0.0 (0.0-0.1) K/uL Nucleated RBC % 0.0 /100WBC Nucleated RBCs # 0 K/uL Lactate (0.20-2.00) mmol/L Sodium 139 (136-148) mmol/L Potassium 3.6 (3.5-5.1) mmol/L Chloride 103 (98-107) mmol/L Carbon Dioxide 25.8 (21.0-32.0) mmol/L BUN 8 (7.0-18.0) mg/dL Creatinine 0.8 (0.8-1.3) mg/dL Est Cr Clr Drug Dosing 127.69 mL/min Estimated GFR (MDRD) > 60.0 ml/min Glucose 105 (74-106) mg/dL Calcium 8.7 (8.5-10.1) mg/dL Total Bilirubin 1.1 H (0.2-1.0) mg/dL AST 15 (15-37) IU/L ALT 24 (14-63) IU/L Alkaline Phosphatase 108 (46-116) U/L Total Protein 6.9 (6.4-8.2) g/dL Albumin 3.3 L (3.4-5.0) g/dL Globulin 3.6 (2.6-4.0) g/dL Albumin/Globulin Ratio 0.9 (0.9-1.6) Urine Color YELLOW Urine Appearance HAZY Urine pH 6.5 (5.0-8.0) Ur Specific [place] 1.025 (1.001-1.035) Urine Protein TRACE H (NEGATIVE) mg/dL Urine Glucose (UA) NEGATIVE (NEGATIVE) mg/dL Urine Ketones TRACE H (NEGATIVE) mg/dL Urine Occult Blood NEGATIVE (NEGATIVE) Urine Nitrite NEGATIVE (NEGATIVE) Urine Bilirubin SMALL H (NEGATIVE) Urine Ictotest NEGATIVE Urine Urobilinogen >=8.0 H (<2.0) EU/dL Ur Leukocyte Esterase NEGATIVE (NEGATIVE) Urine RBC 0-2 (0-2/HPF) Urine WBC 0-3 (0-5/HPF) Ur Epithelial Cells FEW (NONE-FEW) Urine Bacteria 1+ H (NEGATIVE) Urine Mucus MODERATE (NONE-MOD) Migue Results Last 24 Hrs: Microbiology 09/11/19 14:12 Anaerobic Blood Culture - Final Blood - Venous Med Orders - Current: Current Medications Lactated Ringer's (Ringers, Lactated) 1,000 mls @ 150 mls/hr IV ASDIRECTED [facility] Last Admin: 09/12/19 05:46 Dose: 150 mls/hr Clindamycin Phosphate 300 mg/ (Premix) 50 mls @ 150 mls/hr IV Q6H [facility] Last Admin: 09/12/19 09:53 Dose: 150 mls/hr Morphine Sulfate (Morphine) 2 mg IVPUSH Q4H PRN PRN Reason: Pain Last Admin: 09/12/19 09:54 Dose: 2 mg Nicotine (Habitrol) 14 mg TRDERM DAILY [facility] Last Admin: 09/11/19 22:00 Dose: 14 mg Sodium Chloride (Saline Flush) 10 ml FLUSH ASDIRECTED PRN PRN Reason: Keep Vein Open Last Admin: 09/11/19 14:15 Dose: 10 ml Sodium Chloride (Saline Flush) 2.5 ml FLUSH ASDIRECTED PRN PRN Reason: Keep Vein Open Last Admin: 09/11/19 14:15 Dose: 2.5 ml Discontinued Medications Sodium Chloride (Normal Saline) 1,000 mls @ 999 mls/hr IV STAT ONE Stop: 09/11/19 14:23 Last Admin: 09/11/19 14:15 Dose: 999 mls/hr Metronidazole 500 mg/ Premix 100 mls @ 100 mls/hr IV ONETIME ONE Stop: 09/11/19 17:05 Last Admin: 09/11/19 16:17 Dose: 100 mls/hr Ampicillin Sodium/Sulbactam (Sodium 1.5 gm/ Sodium Chloride) 50 mls @ 100 mls/ hr IV ONETIME ONE Stop: 09/11/19 17:14 Last Admin: 09/11/19 17:18 Dose: 100 mls/hr Clindamycin Phosphate 300 mg/ (Premix) 50 mls @ 150 mls/hr IV Q6H [facility] Last Admin: 09/11/19 23:43 Dose: Not Given Iopamidol (Isovue-370 (76%)) 100 ml IVPUSH ONETIME STA Stop: 09/11/19 18:38 Last Admin: 09/11/19 18:38 Dose: 100 ml - Exam General: Alert, Oriented GI/Abdominal Exam: Soft (tender at perineum till testicle, no induration/ cellulitis/erythema/drainage) Sepsis Event Note - Evaluation Sepsis Screening Result: No Definite Risk - Focused Exam Vital Signs: Vital Signs Temp Pulse Resp BP Pulse Ox 09/12/19 03:56 99.1 F 86 16 127/81 97 09/11/19 23:41 98.8 F 88 16 125/67 97 Date Exam was Performed: 09/12/19 Time Exam was Performed: 09:56 - Problem List Review Problem List Initiated/Reviewed/Updated: No - My Orders Last 24 Hours: Active Orders 24 hr Category Date Time Status Admission Status [Patient Status] [ADT] Stat ADT 09/11/19 17:07 Active Admission Status [Patient Status] [ADT] Stat ADT 09/11/19 17:23 Active NPO [Nothing Per Oral Diet] [DIET] Diet 09/12/19 Breakfast Active Pelvis w Cont [MR] Routine Exams 09/12/19 09:54 Ordered Pelvis wo Cont [MR] Routine Exams 09/12/19 09:54 Ordered CBC WITH AUTO DIFF [HEME] AM Lab 09/13/19 05:11 Ordered CULTURE BLOOD [BC] Stat Lab 09/11/19 14:12 Results CULTURE BLOOD [BC] Stat Lab 09/11/19 14:22 Received Clindamycin Phosphate in D5W [Cleocin in D5W] 300 mg Med 09/12/19 03:30 Active Premix Bag 1 bag IV Q6H Lactated Ringers [Ringers, Lactated] 1,000 ml Med 09/11/19 17:30 Active IV ASDIRECTED Morphine Med 09/11/19 17:28 Active 2 mg IVPUSH Q4H PRN Nicotine [Habitrol] Med 09/11/19 22:00 Active 14 mg TRDERM DAILY Sodium Chloride 0.9% [Saline Flush] Med 09/11/19 13:23 Active 10 ml FLUSH ASDIRECTED PRN Sodium Chloride 0.9% [Saline Flush] Med 09/11/19 13:23 Active 2.5 ml FLUSH ASDIRECTED PRN Blood Culture x2 Reflex Set [OM.PC] Stat Oth 09/11/19 13:55 Ordered Saline Lock Insert [OM.PC] Stat Oth 09/11/19 13:23 Ordered Medication Orders Lactated Ringer's (Ringers, Lactated) 1,000 mls @ 150 mls/hr IV ASDIRECTED [facility] Last Admin: 09/12/19 05:46 Dose: 150 mls/hr Infusion: 09/12/19 04:00 Dose: 150 mls/hr Admin: 09/11/19 21:19 Dose: 150 mls/hr Clindamycin Phosphate 300 mg/ (Premix) 50 mls @ 150 mls/hr IV Q6H [facility] Last Admin: 09/12/19 09:53 Dose: 150 mls/hr Infusion: 09/12/19 04:18 Dose: 150 mls/hr Admin: 09/12/19 03:58 Dose: 150 mls/hr Morphine Sulfate (Morphine) 2 mg IVPUSH Q4H PRN PRN Reason: Pain Last Admin: 09/12/19 09:54 Dose: 2 mg Admin: 09/12/19 05:46 Dose: 2 mg Admin: 09/12/19 01:21 Dose: 2 mg Admin: 09/11/19 21:19 Dose: 2 mg Nicotine (Habitrol) 14 mg TRDERM DAILY [facility] Last Admin: 09/11/19 22:00 Dose: 14 mg Sodium Chloride (Saline Flush) 10 ml FLUSH ASDIRECTED PRN PRN Reason: Keep Vein Open Last Admin: 09/11/19 14:15 Dose: 10 ml Sodium Chloride (Saline Flush) 2.5 ml FLUSH ASDIRECTED PRN PRN Reason: Keep Vein Open Last Admin: 09/11/19 14:15 Dose: 2.5 ml - Assessment Assessment (Free Text/Narrative):: afeb vss, perineum looked fine, no cellulitis/drainage; tenderness all the way to testicle; ct reading possible infection in rectal wall; mri pending - Plan Plan (Free Text/Narrative):: afeb vss, perineum looked fine, no cellulitis/drainage; tenderness all the way to testicle; ct reading possible infection in rectal wall; mri pending
[2019-09-12 10:15] VITALS: BP 132/62; PULSE 80
--- NOTE | 2019-09-12 11:39 | PCM.DCSUM1 ---
Discharge Summary - Hospital Course Diagnosis: Stroke: No - Discharge Data Discharge Date: 09/12/19 Discharge Disposition: Home, Self-Care 01 Condition: Fair - Referral to Home Health Date of Face to Face Encounter: 09/12/19 Primary Care Physician: PCP None - Patient Summary/Data Hospital Course: pt seen at ed X 2 wks hx of pain on defecation; pt was admitted for further workup; pelvic CT > 4 X 4 cm abscess 3.8 cm above external sphincter; long discussion w pt, to pt's best interest, pt would benefit seeing a colorectal surgeon or intervention radiology; arrangement made w Dr. Magana at [facility] for tomorrow 9 am appointment; all Xray/image pushed to [place]; plan discussed w pt, pt concur and proceed. - Patient Instructions Diet: NPO Diet, Other: npo after midnight Activity: As Tolerated Showering/Bathing: September Shower - Discharge Plan Home Medications: Home Meds Marijuana 0 unit PO ASDIRECTED PRN 12/22/18 [History] Forms: ED Department Discharge Referrals: PCP,None [Primary Care Provider] - - Discharge Summary/Plan Comment DC Time >30 min.: Yes - Review of Systems General: Reports: No Symptoms Genitourinary: Reports: No Symptoms (perineum pain, no expressible materials) - Patient Data Vitals - Most Recent: Last Vital Signs Temp 100 F 09/12/19 08:00 Pulse 80 09/12/19 08:00 Resp 18 09/12/19 08:00 BP 132/62 09/12/19 08:00 Pulse Ox 93 L 09/12/19 08:00 Weight - Most Recent: 150 lb 2.157 oz I&O - Last 24 hours: Intake & Output 09/11/19 09/12/19 09/12/19 22:59 06:59 14:59 Intake Total 882 Output Total 220 Balance 662 Lab Results - Last 24 hrs: Laboratory Results - last 24 hr 09/11/19 09/11/19 09/11/19 Range/Units 13:45 13:45 14:12 WBC 19.32 H (4.0-11.0) K/uL RBC 5.06 (4.50-5.90) M/uL Hgb 15.8 (13.0-17.0) g/dL Hct 45.9 (38.0-50.0) % MCV 90.7 (80.0-98.0) fL MCH 31.2 (27.0-32.0) pg MCHC 34.4 (31.0-37.0) g/dL RDW Std Deviation 41.8 (28.0-62.0) fl RDW Coeff of [place] 13 (11.0-15.0) % Plt Count 271 (150-400) K/uL MPV 10.10 (7.40-12.00) fL Neut % (Auto) 79.2 (48.0-80.0) % Lymph % (Auto) 10.5 L (16.0-40.0) % [place] % (Auto) 10.1 (0.0-15.0) % Eos % (Auto) 0.0 (0.0-7.0) % Baso % (Auto) 0.2 (0.0-1.5) % Neut # (Auto) 15.3 H (1.4-5.7) K/uL Lymph # (Auto) 2.0 (0.6-2.4) K/uL [place] # (Auto) 2.0 H (0.0-0.8) K/uL Eos # (Auto) 0.0 (0.0-0.7) K/uL Baso # (Auto) 0.0 (0.0-0.1) K/uL Nucleated RBC % 0.0 /100WBC Nucleated RBCs # 0 K/uL Lactate 1.5 (0.20-2.00) mmol/L Sodium 138 (136-148) mmol/L Potassium 3.6 (3.5-5.1) mmol/L Chloride 98 (98-107) mmol/L Carbon Dioxide 29.9 (21.0-32.0) mmol/L BUN 8 (7.0-18.0) mg/dL Creatinine 0.9 (0.8-1.3) mg/dL Est Cr Clr Drug Dosing 114.91 mL/min Estimated GFR (MDRD) > 60.0 ml/min Glucose 105 (74-106) mg/dL Calcium 9.6 (8.5-10.1) mg/dL Total Bilirubin 1.1 H (0.2-1.0) mg/dL AST 20 (15-37) IU/L ALT 26 (14-63) IU/L Alkaline Phosphatase 119 H (46-116) U/L Total Protein 8.0 (6.4-8.2) g/dL Albumin 3.9 (3.4-5.0) g/dL Globulin 4.1 H (2.6-4.0) g/dL Albumin/Globulin Ratio 1.0 (0.9-1.6) Urine Color Urine Appearance Urine pH (5.0-8.0) Ur Specific [place] (1.001-1.035) Urine Protein (NEGATIVE) mg/dL Urine Glucose (UA) (NEGATIVE) mg/dL Urine Ketones (NEGATIVE) mg/dL Urine Occult Blood (NEGATIVE) Urine Nitrite (NEGATIVE) Urine Bilirubin (NEGATIVE) Urine Ictotest Urine Urobilinogen (<2.0) EU/dL Ur Leukocyte Esterase (NEGATIVE) Urine RBC (0-2/HPF) Urine WBC (0-5/HPF) Ur Epithelial Cells (NONE-FEW) Urine Bacteria (NEGATIVE) Urine Mucus (NONE-MOD) 09/11/19 09/12/19 09/12/19 Range/Units 15:00 05:05 05:05 WBC 18.72 H (4.0-11.0) K/uL RBC 4.71 (4.50-5.90) M/uL Hgb 14.7 (13.0-17.0) g/dL Hct 42.8 (38.0-50.0) % MCV 90.9 (80.0-98.0) fL MCH 31.2 (27.0-32.0) pg MCHC 34.3 (31.0-37.0) g/dL RDW Std Deviation 42.0 (28.0-62.0) fl RDW Coeff of [place] 13 (11.0-15.0) % Plt Count 278 (150-400) K/uL MPV 10.70 (7.40-12.00) fL Neut % (Auto) 78.1 (48.0-80.0) % Lymph % (Auto) 10.7 L (16.0-40.0) % [place] % (Auto) 10.8 (0.0-15.0) % Eos % (Auto) 0.2 (0.0-7.0) % Baso % (Auto) 0.2 (0.0-1.5) % Neut # (Auto) 14.6 H (1.4-5.7) K/uL Lymph # (Auto) 2.0 (0.6-2.4) K/uL [place] # (Auto) 2.0 H (0.0-0.8) K/uL Eos # (Auto) 0.0 (0.0-0.7) K/uL Baso # (Auto) 0.0 (0.0-0.1) K/uL Nucleated RBC % 0.0 /100WBC Nucleated RBCs # 0 K/uL Lactate (0.20-2.00) mmol/L Sodium 139 (136-148) mmol/L Potassium 3.6 (3.5-5.1) mmol/L Chloride 103 (98-107) mmol/L Carbon Dioxide 25.8 (21.0-32.0) mmol/L BUN 8 (7.0-18.0) mg/dL Creatinine 0.8 (0.8-1.3) mg/dL Est Cr Clr Drug Dosing 127.69 mL/min Estimated GFR (MDRD) > 60.0 ml/min Glucose 105 (74-106) mg/dL Calcium 8.7 (8.5-10.1) mg/dL Total Bilirubin 1.1 H (0.2-1.0) mg/dL AST 15 (15-37) IU/L ALT 24 (14-63) IU/L Alkaline Phosphatase 108 (46-116) U/L Total Protein 6.9 (6.4-8.2) g/dL Albumin 3.3 L (3.4-5.0) g/dL Globulin 3.6 (2.6-4.0) g/dL Albumin/Globulin Ratio 0.9 (0.9-1.6) Urine Color YELLOW Urine Appearance HAZY Urine pH 6.5 (5.0-8.0) Ur Specific [place] 1.025 (1.001-1.035) Urine Protein TRACE H (NEGATIVE) mg/dL Urine Glucose (UA) NEGATIVE (NEGATIVE) mg/dL Urine Ketones TRACE H (NEGATIVE) mg/dL Urine Occult Blood NEGATIVE (NEGATIVE) Urine Nitrite NEGATIVE (NEGATIVE) Urine Bilirubin SMALL H (NEGATIVE) Urine Ictotest NEGATIVE Urine Urobilinogen >=8.0 H (<2.0) EU/dL Ur Leukocyte Esterase NEGATIVE (NEGATIVE) Urine RBC 0-2 (0-2/HPF) Urine WBC 0-3 (0-5/HPF) Ur Epithelial Cells FEW (NONE-FEW) Urine Bacteria 1+ H (NEGATIVE) Urine Mucus MODERATE (NONE-MOD) NAYELI Results - Last 24 hrs: Microbiology 09/11/19 14:12 Anaerobic Blood Culture - Final Blood - Venous Med Orders - Current: Current Medications Lactated Ringer's (Ringers, Lactated) 1,000 mls @ 150 mls/hr IV ASDIRECTED [facility] Last Admin: 09/12/19 05:46 Dose: 150 mls/hr Clindamycin Phosphate 300 mg/ (Premix) 50 mls @ 150 mls/hr IV Q6H [facility] Last Admin: 09/12/19 09:53 Dose: 150 mls/hr Morphine Sulfate (Morphine) 2 mg IVPUSH Q4H PRN PRN Reason: Pain Last Admin: 09/12/19 09:54 Dose: 2 mg Nicotine (Habitrol) 14 mg TRDERM DAILY [facility] Last Admin: 09/12/19 09:57 Dose: 14 mg Sodium Chloride (Saline Flush) 10 ml FLUSH ASDIRECTED PRN PRN Reason: Keep Vein Open Last Admin: 09/11/19 14:15 Dose: 10 ml Sodium Chloride (Saline Flush) 2.5 ml FLUSH ASDIRECTED PRN PRN Reason: Keep Vein Open Last Admin: 09/11/19 14:15 Dose: 2.5 ml Discontinued Medications Sodium Chloride (Normal Saline) 1,000 mls @ 999 mls/hr IV STAT ONE Stop: 09/11/19 14:23 Last Admin: 09/11/19 14:15 Dose: 999 mls/hr Metronidazole 500 mg/ Premix 100 mls @ 100 mls/hr IV ONETIME ONE Stop: 09/11/19 17:05 Last Admin: 09/11/19 16:17 Dose: 100 mls/hr Ampicillin Sodium/Sulbactam (Sodium 1.5 gm/ Sodium Chloride) 50 mls @ 100 mls/ hr IV ONETIME ONE Stop: 09/11/19 17:14 Last Admin: 09/11/19 17:18 Dose: 100 mls/hr Clindamycin Phosphate 300 mg/ (Premix) 50 mls @ 150 mls/hr IV Q6H [facility] Last Admin: 09/11/19 23:43 Dose: Not Given Iopamidol (Isovue-370 (76%)) 100 ml IVPUSH ONETIME STA Stop: 09/11/19 18:38 Last Admin: 09/11/19 18:38 Dose: 100 ml
[2019-09-12] MEDS ORDERED: Morphine 2 MG/ML Syringe IVPUSH ONE (13:00)
[2019-09-12] MEDS ORDERED: LORazepam 2 MG/ML SDV IVPUSH ONE (13:00)
== END 2019-09-12 13:25 | disposition home or self-care (01) ==
LOC: MW.ED 12:55 → MW.MS 17:23
PROVIDERS: ADMIT Surgery; ATTEND Surgery
DX: K61.1 Rectal abscess (principal); F17.210 Nicotine dependence, cigarettes, uncomplicated; Z91.041 Radiographic dye allergy status; Z91.09 Other allergy status, other than to drugs and biological substances
CPT/HCPCS: 36415; 72192; 72192-26; 74177; 74177-26; 80053; 81001; 83605; 85025; 87040; 96361; 96365; 96366; 96367; 96375; 96376; 99284; 99285-25; A9270-GY; G0378; J0295; J2060; J2270; J3490; J7030; J7050; J7120; Q9967

== ENCOUNTER 2020-05-20 12:32 | Emergency (ER) | payer MEDICAID, OTHER ==
--- NOTE | 2020-05-20 13:18 | EDM.PDOC ---
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 discharged. This information is to outline your options for follow-up care. We provide all patients seen in our emergency department with a follow-up referral. The need for follow-up, as well as the timing and circumstances, are variable depending upon the specifics of your emergency department visit. If you don't have a primary care physician on staff, we will provide you with a referral. We always advise you to contact your personal physician following an emergency department visit to inform them of the circumstance of the visit and for follow-up with them and/or the need for any referrals to a consulting specialist. The emergency department will also refer you to a specialist when appropriate. This referral assures that you have the opportunity for follow-up care with a specialist. All of these measure are taken in an effort to provide you with optimal care, which includes your follow-up. Under all circumstances we always encourage you to contact your private physician who remains a resource for coordinating your care. When calling for follow-up care, please make the office aware that this follow-up is from your recent emergency room visit. If for any reason you are refused follow-up, please contact the [facility] Emergency Department at and asked to speak to the emergency department charge nurse. If you do not have a primary care physician that is caring for you, you can contact these clinics below to set up an appointment to establish care: [facility] - Primary Care [address] [place] [id number] [facility] [address] [place] [id number] Sepsis Event Note (ED) - Evaluation Sepsis Screening Result: No Definite Risk - Focused Exam Vital Signs: Vital Signs Temp Pulse Resp BP Pulse Ox 05/20/20 16:03 35.9 C L 69 14 120/78 97 05/20/20 12:37 36.3 C 87 16 144/78 H 97 - My Orders Last 24 Hours: My Active Orders 05/20/20 Lunch Nothing Per Oral Diet [DIET] 05/20/20 12:39 Cardiac Monitoring [RC] . DIRECTED EKG Documentation Completion [RC] STAT Pulse Oximetry [RC] ASDIRECTED Sodium Chloride 0.9% [Saline Flush] 10 ml FLUSH ASDIRECTED PRN Sodium Chloride 0.9% [Saline Flush] 2.5 ml FLUSH ASDIRECTED PRN Saline Lock Insert [OM.PC] Stat 05/20/20 13:05 CULTURE BLOOD [BC] Stat 05/20/20 13:10 Blood Culture x2 Reflex Set [OM.PC] Stat 05/20/20 14:15 CULTURE BLOOD [BC] Stat 05/20/20 16:44 DME for Discharge [COMM] Stat - Assessment/Plan Last 24 Hours: My Active Orders 05/20/20 Lunch Nothing Per Oral Diet [DIET] 05/20/20 12:39 Cardiac Monitoring [RC] . DIRECTED EKG Documentation Completion [RC] STAT Pulse Oximetry [RC] ASDIRECTED Sodium Chloride 0.9% [Saline Flush] 10 ml FLUSH ASDIRECTED PRN Sodium Chloride 0.9% [Saline Flush] 2.5 ml FLUSH ASDIRECTED PRN Saline Lock Insert [OM.PC] Stat 05/20/20 13:05 CULTURE BLOOD [BC] Stat 05/20/20 13:10 Blood Culture x2 Reflex Set [OM.PC] Stat 05/20/20 14:15 CULTURE BLOOD [BC] Stat 05/20/20 16:44 DME for Discharge [COMM] Stat
[2020-05-20 13:48] LABS: BLOOD UREA NITROGEN,BUN 6 mg/dL (7.0-18.0); CARBON DIOXIDE,CO2 24.8 mmol/L (21.0-32.0); CHLORIDE,CL 102 mmol/L (98-107); GLUCOSE RANDOM 103 mg/dL (74-106); POTASSIUM,K 3.5 mmol/L (3.5-5.1); SODIUM,NA 138 mmol/L (136-148)
--- NOTE | 2020-05-20 13:51 | CR ---
INDICATION: Dyspnea COMPARISON: None TECHNIQUE: PA and lateral views of the chest were acquired FINDINGS: TUBES AND LINES: None. HEART AND MEDIASTINUM: The heart size is normal. The mediastinal contour appears normal for patient age. LUNGS AND PLEURAL SPACES: The lungs appear normal.The pleural spaces are unremarkable. OSSEOUS STRUCTURES: Age-appropriate appearance. No acute focal finding. IMPRESSION: No evidence of active pulmonary disease. Dictated by Joseph Love MD @ May 20 2020 1:49PM Signed by Dr. Joseph Love @ May 20 2020 1:51PM
[2020-05-20] MEDS: Iopamidol 755 MG/ML 500 ML Multipack Bottle IVPUSH STA (13:58)
--- NOTE | 2020-05-20 14:08 | CT ---
Indication: Fall Technique: Volumetric multidetector CT images of the head were obtained without the administration of low osmolar intravenous contrast. Comparison: None available Findings: There is no intra-axial or extra-axial fluid collection. There is no mass effect or midline shift. The ventricles and sulci are normal in size and position for age. The brain parenchyma is grossly preserved in attenuation and wu-white differentiation. The orbits and their contents are grossly within normal limits. The bony calvarium is grossly intact. The paranasal sinuses are clear. The mastoid air cells are well aerated. Impression: No acute intracranial abnormality. Please note that all CT scans at this facility use dose modulation, iterative reconstruction, and/or weight-based dosing when appropriate to reduce radiation dose to as low as reasonably achievable. Dictated by Yayo Franks MD @ May 20 2020 2:01PM Signed by Dr. Yayo Franks @ May 20 2020 2:06PM
--- NOTE | 2020-05-20 14:17 | CT ---
Indication: Left-sided pleuritic chest pain rule out pulmonary embolism Technique: Volumetric multidetector CT images of the chest were obtained after the administration of IV contrast. 100 cc Isovue 370 Comparison: None available. Findings: The thoracic inlet and thyroid gland are unremarkable. The thoracic aorta is nonaneurysmal. There is no central filling defect to suggest pulmonary embolism. There are reactive appearing mediastinal and hilar lymph nodes. There is persistent soft tissue in the prevascular space likely representing residual thymic tissue. The trachea and bronchi are well aerated without significant bronchiectasis. There is subtle air trapping seen throughout the bilateral hemithoraces with small intra lobular nodular opacities predominantly within the bilateral lung bases. There is no dense consolidation, effusion, or pneumothorax. There is no evidence of pulmonary mass or suspicious pulmonary nodule. The partially visualized upper abdominal viscera are within normal limits. The thoracic vertebral body heights remain intact alignment without significant degenerative change or acute osseous abnormality. Impression: Demonstration of mild air trapping with subtle centrilobular nodular opacities predominantly within the lung bases which may represent small airways disease. No evidence of dense consolidation, effusion, or pneumothorax is appreciated. No evidence of pulmonary embolus. Please note that all CT scans at this facility use dose modulation, iterative reconstruction, and/or weight-based dosing when appropriate to reduce radiation dose to as low as reasonably achievable. Dictated by Yayo Franks MD @ May 20 2020 2:01PM Signed by Dr. Yayo Franks @ May 20 2020 2:14PM
[2020-05-20] MEDS: fentaNYL 50 MCG/ML SDV IVPUSH ONE ×2 (14:29→16:01)
[2020-05-20] MEDS: Sodium Chloride 0.9% 2.5 ML Syringe FLUSH PRN (14:32)
[2020-05-20] MEDS: Sodium Chloride 0.9% 10 ML Syringe FLUSH PRN (14:32)
--- NOTE | 2020-05-20 14:56 | CT ---
INDICATION: Fever, bilateral flank pain, epigastric pain. TECHNIQUE: CT of the abdomen and pelvis with 100 cc Isovue 370 IV contrast. Coronal and sagittal reconstructions. COMPARISON: CT of the abdomen and pelvis 09/11/2019. FINDINGS: The liver, gallbladder, spleen, pancreas, and adrenal glands are negative. Hepatic and portal veins are patent. Symmetric enhancement of the kidneys. No hydronephrosis or ureteral dilation. There is early excretion of contrast within the renal calices and mid left ureter which limits evaluation for calculi. Within these limitations, no obstructing urinary calculi are identified. Mild diffuse bladder wall thickening likely due to underdistention. The prostate gland is normal in appearance. There is wall thickening of multiple loops of proximal and mid small bowel in the left abdomen which likely represents enteritis. No evidence of bowel obstruction. Negative appendix. Tiny hiatal hernia. No intraperitoneal free air or fluid. The previously seen perirectal fluid collection has resolved. No lymphadenopathy. The bones are unremarkable. The lung bases are clear. IMPRESSION: 1. Wall thickening of multiple loops of proximal and mid small bowel in the left abdomen likely represents enteritis. No evidence of bowel obstruction. 2. Resolution of the previously seen perirectal fluid collection. 3. No urinary calculi identified. No evidence of urinary obstruction. Please note that all CT scans at this facility use dose modulation, iterative reconstruction, and/or weight-based dosing when appropriate to reduce radiation dose to as low as reasonably achievable. Dictated by Sarah Begum MD @ May 20 2020 2:38PM Signed by Dr. Sarah Begum @ May 20 2020 2:54PM
--- NOTE | 2020-05-20 14:58 | CR ---
Indication: Possible dislocation Comparison: Three views right shoulder May 20, 2020 Technique: Axillary view right shoulder were obtained Findings: There is no displaced fracture or dislocation. There is degenerative change the joint space with mild glenohumeral joint space loss. The soft tissues are unremarkable. Impression: Demonstration of degenerative changes of the glenohumeral joint without definite dislocation. Dictated by Yayo Franks MD @ May 20 2020 2:55PM Signed by Dr. Yayo Franks @ May 20 2020 2:57PM
--- NOTE | 2020-05-20 15:08 | CR ---
Indication: Shoulder pain Technique: Right shoulder 3 views Comparison: None Findings: Bones: Alignment is normal. No fractures or bone lesions. Joint spaces: The glenohumeral and AC joints and the subacromial space are preserved. No significant degenerative changes. Soft tissues: Unremarkable. Impression: Unremarkable shoulder. No findings to explain pain. No dislocation. Dictated by Roni Fox MD @ May 20 2020 3:03PM Signed by Dr. Roni Fox @ May 20 2020 3:07PM
[2020-05-20] MEDS ORDERED: Midazolam 1 MG/ML 2 ML SDV ONE (16:12)
[2020-05-20] MEDS ORDERED: Propofol 200 MG/20 ML SDV ONE (16:12)
[2020-05-20] MEDS ORDERED: Glycopyrrolate 0.2 MG/ML SDV ONE (16:13)
--- NOTE | 2020-05-20 16:49 | PCM.PRNOTE ---
- Free Text/Narrative Note: Anes Note I was called to ER to provide IV sedation for a dislocated right shoulder. H&P was completed by Dr Tolentino. Face mask O2 was placed at 5LPM. Sedation consisted of 2 mg versed. After 5 minutes, propofol in 10 mg incrementation doses was administered. At 100 mg, a satisfactory level of conscious sedation was achieved. Should easily reduced by ER physician. Shoulder immobilizer was placed. Patient quickly recovered from sedation, and was alert and oreinted. Benito well. Time with patient [phone] Xavier Carrera CRNA
--- NOTE | 2020-05-20 18:04 | CR ---
INDICATION: Status post reduction. COMPARISON: From earlier today. TECHNIQUE: The right shoulder was examined with AP and Y views for a total of two views. FINDINGS: The osseous structures are in anatomic alignment without fracture or dislocation. There is anatomic alignment of the humeral head and glenoid. The previously seen posterior subluxation is no longer present. The visualized chest is clear. IMPRESSION: Normal right shoulder, with anatomic alignment of the humeral head and glenoid. Dictated by Jordan Miramontes MD @ May 20 2020 5:57PM Signed by Dr. Jordan Miramontes @ May 20 2020 6:03PM
[2020-05-20 20:02] VITALS: BP 124/81; PULSE 67
== END 2020-05-20 17:15 | disposition home or self-care (01) ==
LOC: MW.ED 12:32
DX: M24.411 Recurrent dislocation, right shoulder (principal); C34.90 Malignant neoplasm of unspecified part of unspecified bronchus or lung; K52.9 Noninfective gastroenteritis and colitis, unspecified; Z92.21 Personal history of antineoplastic chemotherapy; F17.210 Nicotine dependence, cigarettes, uncomplicated; Z20.828 Contact with and (suspected) exposure to other viral communicable diseases; Z88.8 Allergy status to other drugs, medicaments and biological substances; Z91.041 Radiographic dye allergy status; Z79.899 Other long term (current) drug therapy
CPT/HCPCS: 23650; 36415; 70450; 71046; 71275; 73020; 73030; 74177; 80053; 81001; 83605; 83690; 84484; 85025; 85610; 87040; 87635; 93005; 99285; J2250; J2704; J3010; J3490; Q9967; 01620; 93010; 99284; U0002

== ENCOUNTER 2020-08-24 20:35 | Emergency (ER) | payer MEDICAID ==
[2020-08-24] MEDS ORDERED: Sodium Chloride 0.9% 10 ML Syringe FLUSH PRN ×2 (21:16→22:20)
[2020-08-24] MEDS ORDERED: Sodium Chloride 0.9% 2.5 ML Syringe FLUSH PRN ×2 (21:16→22:20)
[2020-08-24] MEDS ORDERED: Ondansetron 4 MG/2 ML SDV IVPUSH ONE ×2 (22:20→23:43)
[2020-08-24] MEDS ORDERED: Sodium Chloride 0.9% 1,000 ML IV ONE (22:21)
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
[2020-08-24 23:14] LABS: BLOOD UREA NITROGEN,BUN 8 mg/dL (7.0-18.0); CARBON DIOXIDE,CO2 30.3 mmol/L (21.0-32.0); CHLORIDE,CL 104 mmol/L (98-107); GLUCOSE RANDOM 92 mg/dL (74-106); LIPASE 112 U/L (73-393); SODIUM,NA 139 mmol/L (136-148)
[2020-08-24] MEDS ORDERED: HYDROmorphone 1 MG/ML Syringe IVPUSH ONE (23:43)
[2020-08-25] MEDS ORDERED: Iopamidol 755 MG/ML 500 ML Multipack Bottle IVPUSH STA (00:19)
--- NOTE | 2020-08-25 01:13 | CT ---
INDICATION: abdominal pain and heme positive stool CT ABDOMEN AND PELVIS WITH CONTRAST TECHNIQUE: Multidetector CT imaging was performed through the abdomen and pelvis following intravenous contrast administration using 100 mL Isovue 370. Coronal and sagittal reconstructions were generated. COMPARISON: 06/03/2020 CT abdomen and pelvis. FINDINGS: Lower chest: Lung bases are clear. Liver: Within normal limits. Gallbladder and bile ducts: Contracted gallbladder. No gallbladder wall thickening or calcified gallstones. No biliary dilation identified. Pancreas: Unremarkable. Spleen: Normal. Adrenals: No nodules or masses. Kidneys, ureters, and urinary bladder: No renal masses or hydronephrosis. No bladder mass or definite wall thickening. Gastrointestinal tract: Normal caliber bowel without definite obstruction or wall thickening. The appendix is normal. Vascular structures: Normal for age. Peritoneum: No free air, abscess, or significant free fluid. Lymph nodes: No pathologically enlarged nodes identified. Reproductive organs: No pelvic masses. Bones: Normal for age. IMPRESSION: No acute abnormality identified. No cause for the patient`s symptoms is demonstrated. ANNA LI MD [employer] Dictated by Marvin Li MD @ 08/25/2020 1:10:47 AM Dictated by: Marvin Li MD @ 08/25/2020 01:12:53 (Electronically Signed)
[2020-08-25] MEDS ORDERED: HYDROmorphone 1 MG/ML Syringe IVPUSH ONE (02:01)
[2020-08-25] MEDS ORDERED: LORazepam 2 MG/ML SDV IVPUSH ONE (02:01)
--- NOTE | 2020-08-25 03:17 | CR ---
Indication: Recurrent dislocation Technique: Three views of the right shoulder Comparison: Right shoulder radiographs 07/15/2019 Findings/Impression: Suboptimal AP and axillary views. The glenohumeral joint appears normally located on shoulder Y-view. No fracture is appreciated. Dictated by Onel Lopez MD @ Aug 25 2020 3:17AM Signed by Dr. Onel Lopez @ Aug 25 2020 3:17AM
[2020-08-25 04:59] VITALS: BP 142/76; PULSE 101
== END 2020-08-25 04:25 | disposition home or self-care (01) ==
LOC: MW.ED 20:35
DX: S43.001A Unspecified subluxation of right shoulder joint, initial encounter (principal); K62.5 Hemorrhage of anus and rectum; Z72.0 Tobacco use; Z91.048 Other nonmedicinal substance allergy status; Z88.8 Allergy status to other drugs, medicaments and biological substances; X58.XXXA Exposure to other specified factors, initial encounter
CPT/HCPCS: 36415; 73030; 74177; 80053; 81003; 83690; 83735; 85025; 96374; 96375; 96376; 99284; J1170; J2060; J2405; J7030; Q9967; 99283

== ENCOUNTER 2020-10-06 17:52 | Emergency (ER) | payer MEDICAID | END 2020-10-06 18:38 | disposition left against medical advice (07) | LOC: MW.ED 17:52 | DX: Z53.21 Procedure and treatment not carried out due to patient leaving prior to being seen by health care provider (principal) ==

== ENCOUNTER 2020-10-07 11:49 | Emergency (ER) | payer MEDICAID ==
[2020-10-07] MEDS ORDERED: Lactated Ringers 1,000 ML IV ONE ×2 (14:15→15:52)
--- NOTE | 2020-10-07 14:49 | CR ---
CHEST 1 VIEW AP INDICATION: Syncope. IMPRESSION: Lordotic view. Apices are not entirely included on this exam. Normal heart size and vascular pattern. Lungs are clear of focal opacities. No pneumothorax or pleural abnormality. Dictated by Bud Noe MD @ 10/07/2020 2:49:[address] Bud Noe @ Oct 07 2020 2:49PM
--- NOTE | 2020-10-07 15:25 | CR ---
HISTORY: Syncope. TECHNIQUE: Right shoulder 3 views. COMPARISON: Shoulder radiographs 08/25/2020. FINDINGS: Posterior dislocation at the glenohumeral joint. No fracture although portions of the humeral head are not well visualized due to patient`s arm position. No AC joint malalignment. IMPRESSION: Posterior dislocation at the glenohumeral joint. Dictated by Isaias Hernández MD @ 10/07/2020 3:24:[address] Isaias Hernández @ Oct 07 2020 3:24PM
[2020-10-07 15:44] LABS: BLOOD UREA NITROGEN,BUN 15 mg/dL (7.0-18.0); CARBON DIOXIDE,CO2 33.3 mmol/L (21.0-32.0); CHLORIDE,CL 100 mmol/L (98-107); GLUCOSE RANDOM 100 mg/dL (74-106); POTASSIUM,K 4.3 mmol/L (3.5-5.1); SODIUM,NA 140 mmol/L (136-148)
[2020-10-07 15:53] LABS: CORONAVIRUS COVID-19 NAA NEGATIVE (NEGATIVE); INFLUENZA A NAA NEGATIVE (NEGATIVE); INFLUENZA B NAA NEGATIVE (NEGATIVE)
[2020-10-07] MEDS ORDERED: cefTRIAXone 1 GM Vial IVPUSH ONE (16:01)
[2020-10-07] MEDS ORDERED: cefTRIAXone 1 GM in Premix Bag 1 BAG IV ONE (16:04)
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
[2020-10-07] MEDS ORDERED: Morphine 4 MG/ML Syringe IVPUSH ONE (16:54)
[2020-10-07 21:22] VITALS: BP 129/88; PULSE 69
== END 2020-10-07 17:12 ==
LOC: MW.ED 11:49
DX: S43.024A Posterior dislocation of right humerus, initial encounter (principal); A02.0 Salmonella enteritis; Z20.822 Contact with and (suspected) exposure to COVID-19; Z91.048 Other nonmedicinal substance allergy status; Z72.0 Tobacco use; X58.XXXA Exposure to other specified factors, initial encounter
CPT/HCPCS: 0240U; 36415; 71045; 73030; 80053; 83605; 83735; 85025; 85379; 85610; 87040; 96365; 96375; 99285; J0696; J2270; J7120

== ENCOUNTER 2020-10-21 14:48 | Emergency (ER) | payer MEDICAID ==
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
--- NOTE | 2020-10-21 14:59 | PCM.SN.2 ---
- Free Text/Narrative Note: KG sinus tachycardia heart rate 115 OR 129 QT duration 428 axis 94 normal QRS except increased folds. Nonspecific ST abnormality consistent with repolarization changes. No prior for comparison available at the immediate moment but there is no obvious acute injury impression no obvious acute injury
[2020-10-21] MEDS ORDERED: Sodium Chloride 0.9% 10 ML Syringe FLUSH PRN (15:12)
[2020-10-21] MEDS ORDERED: Sodium Chloride 0.9% 2.5 ML Syringe FLUSH PRN (15:12)
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
[2020-10-21 15:55] LABS: BLOOD UREA NITROGEN,BUN 8 mg/dL (7.0-18.0); CARBON DIOXIDE,CO2 31.9 mmol/L (21.0-32.0); CHLORIDE,CL 102 mmol/L (98-107); GLUCOSE RANDOM 120 mg/dL (74-106); POTASSIUM,K 3.6 mmol/L (3.5-5.1); SODIUM,NA 139 mmol/L (136-148)
[2020-10-21] MEDS ORDERED: Iopamidol 755 MG/ML 500 ML Multipack Bottle IVPUSH STA (17:21)
[2020-10-21] MEDS ORDERED: Ketorolac 30 MG/ML SDV IVPUSH ONE (17:58)
--- NOTE | 2020-10-21 18:34 | CT ---
For Patients: As a result of the Century Cures Act, medical imaging exams and procedure reports are released immediately into your electronic medical record. You may view this report before your referring provider. If you have questions, please contact your health care provider. Indication: Lung cancer, shortness of breath and leg swelling Technique: Volumetric multidetector CT images of the chest were obtained after the administration of IV contrast. 100 cc Isovue 370 low osmolar intravenous contrast Comparison: CT angiography chest May 20, 2020 Findings: The thoracic inlet and thyroid gland are unremarkable. The thoracic aorta is nonaneurysmal. There is no central filling defect to suggest pulmonary embolism. There are somewhat bulky mediastinal and hilar lymph nodes the largest inferior right hilum measuring 1.7 centimeters and the inferior left hilum measuring 2.0 centimeters. There is no axillary adenopathy. There is moderate central bronchial thickening. There is somewhat evif-[id number] centrilobular nodular opacities seen throughout the bilateral hemithoraces. There is dependent basilar atelectasis and ground-glass opacity. Mild centrilobular and paraseptal emphysematous changes at the lung apices are appreciated. There are ground-glass pulmonary nodules within the posterior superior right upper lobe the largest of which measures 1 centimeter. There is no evidence of solid pulmonary mass. The partially visualized upper abdomen demonstrates moderate hepatomegaly. The thoracic vertebral body heights are stable with minimal endplate Schmorl`s defects and mild straightening of the normal thoracic kyphosis. There is mild scoliotic deformity of the AP alignment. Impression: Demonstration of extensive centrilobular nodular opacity, central bronchial thickening, scattered ground-glass nodules within the peripheral upper and lower lobes as well as reactive mediastinal and hilar lymph nodes which may represent developing infectious or inflammatory changes. No evidence of definite solid pulmonary mass is appreciated. No evidence of pulmonary embolus. Please note that all CT scans at this facility use dose modulation, iterative reconstruction, and/or weight-based dosing when appropriate to reduce radiation dose to as low as reasonably achievable. Dictated by Yayo Franks MD @ 10/21/2020 6:32:[address] Yayo Franks @ Oct 21 2020 6:32PM
[2020-10-21 18:56] VITALS: BP 133/70; PULSE 60
== END 2020-10-21 18:57 | disposition home or self-care (01) ==
LOC: MW.ED 14:48
DX: R07.89 Other chest pain (principal); R60.0 Localized edema; Z91.048 Other nonmedicinal substance allergy status; Z79.899 Other long term (current) drug therapy; Z72.0 Tobacco use
CPT/HCPCS: 36415; 71275; 80053; 81003; 83880; 84484; 85025; 93005; 96374; 99285; J1885; Q9967; 99284

== ENCOUNTER 2020-12-09 18:36 | Emergency (ER) | payer MEDICAID ==
[2020-12-09] MEDS ORDERED: Sodium Chloride 0.9% 10 ML Syringe FLUSH PRN (20:09)
[2020-12-09] MEDS ORDERED: Sodium Chloride 0.9% 2.5 ML Syringe FLUSH PRN (20:09)
[2020-12-09] MEDS: Sodium Chloride 0.9% 1,000 ML IV ONE (20:22)
[2020-12-09] MEDS: cefTRIAXone 1 GM in Premix Bag 1 BAG IV ONE (20:23)
[2020-12-09 20:27] LABS: BLOOD UREA NITROGEN,BUN 5 mg/dL (7.0-18.0); CARBON DIOXIDE,CO2 33.1 mmol/L (21.0-32.0); CHLORIDE,CL 98 mmol/L (98-107); GLUCOSE RANDOM 101 mg/dL (74-106); POTASSIUM,K 3.6 mmol/L (3.5-5.1); SODIUM,NA 137 mmol/L (136-148)
--- NOTE | 2020-12-09 21:12 | CR ---
Indication: History of lung cancer Technique: Portable chest Comparison: Chest x-ray 10 07 2020 Findings: Normal cardiac mediastinal silhouette. The lungs are clear of an acute airspace or interstitial process. No effusion or pneumothorax. Impression: No acute pulmonary process. Dictated by Fina Rosado MD @ 12/09/2020 9:09:[address] Fina Rosado @ Dec 09 2020 9:09PM
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
[2020-12-09] MEDS: HYDROmorphone 1 MG/ML Syringe IVPUSH ONE (23:04)
[2020-12-09] MEDS: Sulfamethoxazole/Trimethoprim 800-160 MG Tab PO ONE (23:05)
[2020-12-09 23:09] VITALS: BP 122/70; PULSE 99
--- NOTE | 2020-12-11 09:00 | PCM.SN.2 ---
- Free Text/Narrative Note: 12/11/2020, 08:55AM Patient's blood cultures were positive for staph epidermidis, staph lugunensis, and mecA/C; I did speak with the patient on the phone and he notes that the redness is worsening in his foot and tracking up his leg. He has been compliant with his antibiotics. I informed him of the blood culture results and due to positive blood cultures and worsening of symptoms despite outpatient therapy recommended return to emergency department for reassessment and likely admission for failed outpatient cellulitis treatment. Patient is agreeable with this and states that he will come to the ER soon.
== END 2020-12-09 23:09 | disposition home or self-care (01) ==
LOC: MW.ED 18:36
DX: L03.116 Cellulitis of left lower limb (principal); L03.115 Cellulitis of right lower limb; D72.829 Elevated white blood cell count, unspecified; Z87.891 Personal history of nicotine dependence; Z88.8 Allergy status to other drugs, medicaments and biological substances; Z91.048 Other nonmedicinal substance allergy status; Z79.899 Other long term (current) drug therapy; Z20.822 Contact with and (suspected) exposure to COVID-19
CPT/HCPCS: 36415; 71045; 80053; 83605; 85025; 87040; 87150; 87635; 96365; 96375; 99283; A9270; J0696; J1170; J7030; 87077; 87186; U0002

== ENCOUNTER 2020-12-11 09:20 | Observation (INO) | payer MEDICAID ==
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
[2020-12-11] MEDS ORDERED: Sodium Chloride 0.9% 10 ML Syringe FLUSH PRN (10:06)
[2020-12-11] MEDS ORDERED: Piperacillin/Tazobactam 3.375 GM in Sodium Chloride 0.9% 50 ML IV ONE (10:06)
[2020-12-11] MEDS ORDERED: Sodium Chloride 0.9% 2.5 ML Syringe FLUSH PRN (10:06)
[2020-12-11] MEDS ORDERED: Sodium Chloride 0.9% 1,000 ML IV ONE ×2 (10:06→11:57)
[2020-12-11 11:22] LABS: BLOOD UREA NITROGEN,BUN 5 mg/dL (7.0-18.0); CARBON DIOXIDE,CO2 23.8 mmol/L (21.0-32.0); CHLORIDE,CL 103 mmol/L (98-107); GLUCOSE RANDOM 91 mg/dL (74-106); POTASSIUM,K 3.8 mmol/L (3.5-5.1); SODIUM,NA 139 mmol/L (136-148)
--- NOTE | 2020-12-11 11:37 | CR ---
INDICATION: Tachy, shortness of breath, lung cancer history. TECHNIQUE: Chest 1 view. COMPARISON: Chest radiograph 12/09/2020. FINDINGS: No focal consolidation, pleural effusion, pneumothorax. Normal heart size and pulmonary vascularity. The bones are unremarkable. IMPRESSION: No acute cardiopulmonary findings. Dictated by Sarah Begum MD @ 12/11/2020 11:35:[address] Sarah Begum @ Dec 11 2020 11:35AM
--- NOTE | 2020-12-11 12:20 | US ---
INDICATION: Leg pain and swelling. TECHNIQUE: Ultrasound venous duplex lower extremity bilateral. Compression venous exam was performed using bhatia-scale, color Doppler, and spectral Doppler imaging. COMPARISON: None. FINDINGS: Sonographic imaging demonstrates the common femoral, deep femoral, superficial femoral, popliteal, posterior tibial and greater saphenous veins to be fully compressible with normal color Doppler blood flow in both lower extremities. IMPRESSION: Normal bilateral lower extremity venous ultrasound, no sign of deep venous thrombosis. Dictated by Yayo Franks MD @ 12/11/2020 12:18:[address] Yayo Franks @ Dec 11 2020 12:18PM
[2020-12-11] MEDS ORDERED: LORazepam 2 MG/ML SDV IVPUSH ONE (13:51)
[2020-12-11] MEDS ORDERED: oxyCODONE 5 MG Tab PO ONE (13:51)
[2020-12-11] MEDS ORDERED: Iopamidol 755 MG/ML 500 ML Multipack Bottle IVPUSH STA (14:29)
--- NOTE | 2020-12-11 17:24 | CT ---
For Patients: As a result of the Century Cures Act, medical imaging exams and procedure reports are released immediately into your electronic medical record. You may view this report before your referring provider. If you have questions, please contact your health care provider. CT ANGIOGRAM ABDOMEN AND PELVIS, 12/11/2020 CLINICAL HISTORY: Claudication in legs; rule out DVT. Normal CTA runoff. TECHNIQUE: CTA runoff. 120 mL Isovue-[address] venogram of the abdomen, pelvis and bilateral lower extremities was also performed. FINDINGS: Limited imaging of the lung bases reveals no suspicious pulmonary opacities. No pleural effusions. Arterial phase imaging limits evaluation of solid organs and bowel. Noncirrhotic liver morphology. Mild hepatomegaly. Probable diffuse hepatic steatosis. No hydronephrosis. Kidneys enhance symmetrically. No free intraperitoneal air or fluid. The urinary bladder is unremarkable. The prostate is normal in appearance. No bowel obstruction. The pancreas, gallbladder and adrenal glands are unremarkable in appearance. No suspicious retroperitoneal or mesenteric lymphadenopathy. No aggressive-appearing osseous lesion. The IVC, renal veins, hepatic and portal veins, splenic and mesenteric veins and the proximal femoral veins appear patent. The lower extremity veins are not well evaluated by CT but no obvious DVT is seen and ultrasound verified that they are patent. IMPRESSION: Normal CTA. CT venogram without iliocaval DVT and limited examination by CT of the lower extremity veins without obvious DVT which would be consistent with the negative venous ultrasound obtained earlier the same day. Please note that all CT scans at this facility use dose modulation, iterative reconstruction, and/or weight-based dosing when appropriate to reduce radiation dose to as low as reasonably achievable. DONNIE WILLOUGHBY M.D. Interventional Radiology/Diagnostic Radiology (IR/DR) [email or web address] Transcribed: 5:[address]/Dictated by: Donnie Willoughby MD @ 12/11/2020 4:54:00 PM (Electronically Signed)
[2020-12-11] MEDS ORDERED: Morphine 4 MG/ML Syringe IVPUSH ONE (17:47)
[2020-12-11] MEDS ORDERED: Ondansetron 4 MG/2 ML SDV IVPUSH ONE (17:47)
[2020-12-11] MEDS ORDERED: Albuterol/Ipratropium 3.0-0.5 MG/3 ML Neb Soln NEB PRN (18:15)
[2020-12-11] MEDS ORDERED: Ondansetron 4 MG/2 ML SDV IVPUSH PRN (18:15)
[2020-12-11] MEDS ORDERED: Ibuprofen 400 MG Tab PO PRN (18:19)
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
[2020-12-11] MEDS: Pantoprazole 40 MG Tab.CR PO SCH (19:54)
[2020-12-11] MEDS: Enoxaparin 40 MG/0.4 ML Syringe SUBCUT SCH (19:54)
[2020-12-11] MEDS: Piperacillin/Tazobactam 3.375 GM in Sodium Chloride 0.9% 50 ML IV SCH (19:54)
[2020-12-11] MEDS: Sertraline 25 MG Tab PO SCH (20:02)
[2020-12-11] MEDS: Lactated Ringers 1,000 ML IV SCH (20:12)
[2020-12-11] MEDS: QUEtiapine 100 MG Tab PO SCH (20:16)
[2020-12-11] MEDS: LORazepam 1 MG Tab PO PRN (20:35)
[2020-12-11] MEDS: oxyCODONE 5 MG Tab PO PRN (22:08)
[2020-12-12] MEDS: Morphine 2 MG/ML SYRINGE IVPUSH PRN ×5 (01:23→21:41)
[2020-12-12] MEDS: Piperacillin/Tazobactam 3.375 GM in Sodium Chloride 0.9% 50 ML IV SCH ×3 (04:27→19:31)
[2020-12-12] MEDS: Lactated Ringers 1,000 ML IV SCH ×2 (05:10→13:54)
[2020-12-12] MEDS: Cyclobenzaprine 5 MG Tab PO PRN ×2 (05:12→19:40)
[2020-12-12 07:14] LABS: BLOOD UREA NITROGEN,BUN 8 mg/dL (7.0-18.0); CARBON DIOXIDE,CO2 26.4 mmol/L (21.0-32.0); CHLORIDE,CL 108 mmol/L (98-107); GLUCOSE RANDOM 86 mg/dL (74-106); POTASSIUM,K 4.1 mmol/L (3.5-5.1); SODIUM,NA 143 mmol/L (136-148)
[2020-12-12] MEDS: Pantoprazole 40 MG Tab.CR PO SCH ×2 (07:56→16:33)
[2020-12-12] MEDS: Sertraline 25 MG Tab PO SCH (08:40)
[2020-12-12] MEDS: LORazepam 1 MG Tab PO PRN (11:56)
[2020-12-12] MEDS: Gabapentin 100 MG Cap PO SCH ×2 (11:56→21:40)
--- NOTE | 2020-12-12 13:09 | PCM.PN ---
- General Info Date of Service: 12/12/20 Admission Dx/Problem (Free Text): Admission Diagnosis/Problem Admission Diagnosis/Problem Cellulitis Subjective Update: patient seen at bedside, no acute distress, redness is better, c/o "burning pain" in both feet Functional Status: Reports: Tolerating Diet, Ambulating, Urinating - Review of Systems General: Denies: Fever, Weakness, Fatigue Pulmonary: Denies: Shortness of Breath, Pleuritic Chest Pain Cardiovascular: Denies: Chest Pain, Palpitations Gastrointestinal: Denies: Abdominal Pain, Constipation, Decreased Appetite Genitourinary: Denies: Dysuria, Frequency, Burning Musculoskeletal: Reports: Foot Pain. Denies: Neck Pain, Shoulder Pain, Other Skin: Denies: Cyanosis, Jaundice, Mottled, Pallor Neurological: Denies: Confusion, Dizziness, Headache - Patient Data Vitals - Most Recent: Last Vital Signs Temp 36.8 C 12/12/20 11:27 Pulse 84 12/12/20 11:27 Resp 20 12/12/20 11:27 BP 134/80 12/12/20 11:27 Pulse Ox 98 12/12/20 11:27 Weight - Most Recent: 78.471 kg I&O - Last 24 Hours: Intake & Output 12/11/20 12/12/20 12/12/20 22:59 06:59 14:59 Intake Total 1179 Output Total 0 Balance 1179 Lab Results Last 24 Hours: Laboratory Results - last 24 hr 12/11/20 12/12/20 12/12/20 Range/Units 11:18 06:15 06:15 WBC 10.33 (4.0-11.0) K/uL RBC 4.23 L (4.50-5.90) M/uL Hgb 13.1 (13.0-17.0) g/dL Hct 38.5 (38.0-50.0) % MCV 91.0 (80.0-98.0) fL MCH 31.0 (27.0-32.0) pg MCHC 34.0 (31.0-37.0) g/dL RDW Std Deviation 44.2 (28.0-62.0) fl RDW Coeff of Miles 13 (11.0-15.0) % Plt Count 272 (150-400) K/uL MPV 11.20 (7.40-12.00) fL Neut % (Auto) 67.2 (48.0-80.0) % Lymph % (Auto) 21.8 (16.0-40.0) % [place] % (Auto) 8.8 (0.0-15.0) % Eos % (Auto) 1.8 (0.0-7.0) % Baso % (Auto) 0.4 (0.0-1.5) % Neut # (Auto) 6.9 H (1.4-5.7) K/uL Lymph # (Auto) 2.3 (0.6-2.4) K/uL [place] # (Auto) 0.9 H (0.0-0.8) K/uL Eos # (Auto) 0.2 (0.0-0.7) K/uL Baso # (Auto) 0.0 (0.0-0.1) K/uL Nucleated RBC % 0.0 /100WBC Nucleated RBCs # 0 K/uL Sodium 143 (136-148) mmol/L Potassium 4.1 (3.5-5.1) mmol/L Chloride 108 H (98-107) mmol/L Carbon Dioxide 26.4 (21.0-32.0) mmol/L BUN 8 (7.0-18.0) mg/dL Creatinine 1.1 (0.8-1.3) mg/dL Est Cr Clr Drug Dosing 106.02 mL/min Estimated GFR (MDRD) > 60.0 ml/min Glucose 86 (74-106) mg/dL Calcium 8.4 L (8.5-10.1) mg/dL Urine Color YELLOW Urine Appearance CLEAR Urine pH 8.0 (5.0-8.0) Ur Specific [place] 1.010 (1.001-1.035) Urine Protein NEGATIVE (NEGATIVE) mg/dL Urine Glucose (UA) NEGATIVE (NEGATIVE) mg/dL Urine Ketones NEGATIVE (NEGATIVE) mg/dL Urine Occult Blood NEGATIVE (NEGATIVE) Urine Nitrite NEGATIVE (NEGATIVE) Urine Bilirubin NEGATIVE (NEGATIVE) Urine Urobilinogen 0.2 (<2.0) EU/dL Ur Leukocyte Esterase NEGATIVE (NEGATIVE) Migue Results Last 24 Hours: Microbiology 12/11/20 11:30 Aerobic Blood Culture - Preliminary Blood - Venous - Lab Draw NO GROWTH AFTER 1 DAY Anaerobic Blood Culture - Preliminary NO GROWTH AFTER 1 DAY 12/11/20 10:30 Aerobic Blood Culture - Preliminary Blood - Venous - Iv Start NO GROWTH AFTER 1 DAY Anaerobic Blood Culture - Preliminary NO GROWTH AFTER 1 DAY Med Orders - Current: Current Medications Albuterol/Ipratropium (Albuterol/Ipratropium 3.0-0.5 Mg/3 Ml Neb Soln) 3 ml NEB Q4HRRT PRN PRN Reason: Shortness Of Breath/wheezing Cyclobenzaprine HCl (Cyclobenzaprine 5 Mg Tab) 7.5 mg PO BID PRN PRN Reason: back spasms Last Admin: 12/12/20 05:12 Dose: 7.5 mg Documented by: Enoxaparin Sodium (Enoxaparin 40 Mg/0.4 Ml Syringe) 40 mg SUBCUT Q24H [facility] Last Admin: 12/11/20 19:54 Dose: 40 mg Documented by: Gabapentin (Gabapentin 100 Mg Cap) 100 mg PO BID [facility] Last Admin: 12/12/20 11:56 Dose: 100 mg Documented by: Lactated Ringer's (Ringers, Lactated) 1,000 mls @ 125 mls/hr IV ASDIRECTED [facility] Last Admin: 12/12/20 05:10 Dose: 125 mls/hr Documented by: Piperacillin Sod/Tazobactam (Sod 3.375 gm/ Sodium Chloride) 50 mls @ 100 mls/hr IV Q8H [facility] Last Admin: 12/12/20 04:27 Dose: 100 mls/hr Documented by: Ibuprofen (Ibuprofen 400 Mg Tab) 400 mg PO Q6H PRN PRN Reason: Pain (mild 1-3) Lorazepam (Lorazepam 1 Mg Tab) 1 mg PO TID PRN PRN Reason: Anxiety Last Admin: 12/12/20 11:56 Dose: 1 mg Documented by: Morphine Sulfate (Morphine 2 Mg/Ml Syringe) 1 mg IVPUSH Q4H PRN PRN Reason: Pain Last Admin: 12/12/20 08:38 Dose: 1 mg Documented by: Ondansetron HCl (Ondansetron 4 Mg/2 Ml Sdv) 4 mg IVPUSH Q4H PRN PRN Reason: Nausea/Vomiting Oxycodone HCl (Oxycodone 5 Mg Tab) 10 mg PO Q4H PRN PRN Reason: Pain Last Admin: 12/11/20 22:08 Dose: 10 mg Documented by: Pantoprazole Sodium (Pantoprazole 40 Mg Tab.Cr) 40 mg PO BIDAC [facility] Last Admin: 12/12/20 07:56 Dose: 40 mg Documented by: Quetiapine Fumarate (Quetiapine 100 Mg Tab) 200 mg PO BEDTIME [facility] Last Admin: 12/11/20 20:16 Dose: 200 mg Documented by: Sertraline HCl (Sertraline 25 Mg Tab) 50 mg PO DAILY [facility] Last Admin: 12/12/20 08:40 Dose: 50 mg Documented by: Sodium Chloride (Sodium Chloride 0.9% 10 Ml Syringe) 10 ml FLUSH ASDIRECTED PRN PRN Reason: Keep Vein Open Last Admin: 12/11/20 10:35 Dose: 10 ml Documented by: Sodium Chloride (Sodium Chloride 0.9% 2.5 Ml Syringe) 2.5 ml FLUSH ASDIRECTED PRN PRN Reason: Keep Vein Open Last Admin: 12/11/20 10:35 Dose: 2.5 ml Documented by: Discontinued Medications Sodium Chloride (Normal Saline) 1,000 mls @ 999 mls/hr IV .Bolus ONE Stop: 12/11/20 11:06 Last Admin: 12/11/20 10:36 Dose: 999 mls/hr Documented by: Piperacillin Sod/Tazobactam (Sod 3.375 gm/ Sodium Chloride) 50 mls @ 100 mls/hr IV ONETIME ONE Stop: 12/11/20 10:35 Last Admin: 12/11/20 11:29 Dose: 100 mls/hr Documented by: Sodium Chloride (Normal Saline) 1,000 mls @ 999 mls/hr IV .Bolus ONE Stop: 12/11/20 12:57 Last Admin: 12/11/20 12:04 Dose: 999 mls/hr Documented by: Iopamidol (Iopamidol 755 Mg/Ml 500 Ml Multipack Bottle) 120 ml IVPUSH ONETIME STA Stop: 12/11/20 14:30 Last Admin: 12/11/20 14:30 Dose: 120 ml Documented by: Lorazepam (Lorazepam 2 Mg/Ml Sdv) 1 mg IVPUSH ONETIME ONE Stop: 12/11/20 13:52 Last Admin: 12/11/20 14:34 Dose: 1 mg Documented by: Morphine Sulfate (Morphine 4 Mg/Ml Syringe) 4 mg IVPUSH ONETIME ONE Stop: 12/11/20 17:48 Last Admin: 12/11/20 17:54 Dose: 4 mg Documented by: Ondansetron HCl (Ondansetron 4 Mg/2 Ml Sdv) 4 mg IVPUSH ONETIME ONE Stop: 12/11/20 17:48 Last Admin: 12/11/20 17:56 Dose: 4 mg Documented by: Oxycodone HCl (Oxycodone 5 Mg Tab) 10 mg PO ONETIME ONE Stop: 12/11/20 13:52 Last Admin: 12/11/20 14:34 Dose: 10 mg Documented by: Oxycodone HCl (Oxycodone Hcl 10 Mg Tablet) 10 mg PO Q4H PRN PRN Reason: Pain - Exam General: Alert, Oriented Lungs: Clear to Auscultation Cardiovascular: Regular Rate, Regular Rhythm GI/Abdominal Exam: Normal Bowel Sounds, Soft, Non-Tender Extremities: Increased Warmth, Redness. No: Pedal Edema, Joint Swelling, Limited Range of Motion, Pallor Skin: Warm Wound/Incisions: Erythema Improving - Patient Data Lab Results Last 24 hrs: Laboratory Results - last 24 hr 12/11/20 12/12/20 12/12/20 Range/Units 11:18 06:15 06:15 WBC 10.33 (4.0-11.0) K/uL RBC 4.23 L (4.50-5.90) M/uL Hgb 13.1 (13.0-17.0) g/dL Hct 38.5 (38.0-50.0) % MCV 91.0 (80.0-98.0) fL MCH 31.0 (27.0-32.0) pg MCHC 34.0 (31.0-37.0) g/dL RDW Std Deviation 44.2 (28.0-62.0) fl RDW Coeff of Miles 13 (11.0-15.0) % Plt Count 272 (150-400) K/uL MPV 11.20 (7.40-12.00) fL Neut % (Auto) 67.2 (48.0-80.0) % Lymph % (Auto) 21.8 (16.0-40.0) % [place] % (Auto) 8.8 (0.0-15.0) % Eos % (Auto) 1.8 (0.0-7.0) % Baso % (Auto) 0.4 (0.0-1.5) % Neut # (Auto) 6.9 H (1.4-5.7) K/uL Lymph # (Auto) 2.3 (0.6-2.4) K/uL [place] # (Auto) 0.9 H (0.0-0.8) K/uL Eos # (Auto) 0.2 (0.0-0.7) K/uL Baso # (Auto) 0.0 (0.0-0.1) K/uL Nucleated RBC % 0.0 /100WBC Nucleated RBCs # 0 K/uL Sodium 143 (136-148) mmol/L Potassium 4.1 (3.5-5.1) mmol/L Chloride 108 H (98-107) mmol/L Carbon Dioxide 26.4 (21.0-32.0) mmol/L BUN 8 (7.0-18.0) mg/dL Creatinine 1.1 (0.8-1.3) mg/dL Est Cr Clr Drug Dosing 106.02 mL/min Estimated GFR (MDRD) > 60.0 ml/min Glucose 86 (74-106) mg/dL Calcium 8.4 L (8.5-10.1) mg/dL Urine Color YELLOW Urine Appearance CLEAR Urine pH 8.0 (5.0-8.0) Ur Specific [place] 1.010 (1.001-1.035) Urine Protein NEGATIVE (NEGATIVE) mg/dL Urine Glucose (UA) NEGATIVE (NEGATIVE) mg/dL Urine Ketones NEGATIVE (NEGATIVE) mg/dL Urine Occult Blood NEGATIVE (NEGATIVE) Urine Nitrite NEGATIVE (NEGATIVE) Urine Bilirubin NEGATIVE (NEGATIVE) Urine Urobilinogen 0.2 (<2.0) EU/dL Ur Leukocyte Esterase NEGATIVE (NEGATIVE) Result Diagrams: 12/12/20 06:15 12/12/20 06:15 Migue Results Last 24 hrs: Microbiology 12/11/20 11:30 Aerobic Blood Culture - Preliminary Blood - Venous - Lab Draw NO GROWTH AFTER 1 DAY Anaerobic Blood Culture - Preliminary NO GROWTH AFTER 1 DAY 12/11/20 10:30 Aerobic Blood Culture - Preliminary Blood - Venous - Iv Start NO GROWTH AFTER 1 DAY Anaerobic Blood Culture - Preliminary NO GROWTH AFTER 1 DAY Sepsis Event Note - Evaluation Sepsis Screening Result: No Definite Risk - Focused Exam Vital Signs: Vital Signs Temp Pulse Resp BP Pulse Ox 12/12/20 11:27 36.8 C 84 20 134/80 98 12/12/20 08:00 36.7 C 89 16 149/87 H 96 12/12/20 04:29 36.4 C 81 16 130/62 96 - Problem List & Annotations (1) Hospice care Status: Acute Current Visit: Yes (2) Cellulitis SNOMED Code(s): 626812372 Code(s): L03.90 - CELLULITIS, UNSPECIFIED Status: Acute Current Visit: Yes Qualifiers: Site of cellulitis: extremity Site of cellulitis of extremity: lower extremity Laterality: unspecified laterality Qualified Code(s): L03.119 - Cellulitis of unspecified part of limb - Problem List Review Problem List Initiated/Reviewed/Updated: No - My Orders Last 24 Hours: My Active Orders 12/11/20 Dinner Regular Diet [DIET] 12/11/20 18:00 Enoxaparin [Lovenox] 40 mg SUBCUT Q24H 12/11/20 18:15 Ambulate [RC] ASDIRECTED Oxygen Therapy [RC] PRN Pulse Oximetry [RC] PRN VTE/DVT Education [RC] PER UNIT ROUTINE Vital Signs [RC] Q4H Albuterol/Ipratropium [DuoNeb 3.0-0.5 MG/3 ML] 3 ml NEB Q4HRRT PRN Lactated Ringers [Ringers, Lactated] 1,000 ml IV ASDIRECTED Ondansetron [Zofran] 4 mg IVPUSH Q4H PRN Sequential Compression Device [OM.PC] Per Unit Routine 12/11/20 18:16 Antiembolic Devices [RC] PER UNIT ROUTINE RT Aerosol Therapy [RC] ASDIRECTED 12/11/20 18:19 Ibuprofen [Motrin] 400 mg PO Q6H PRN LORazepam [Ativan] 1 mg PO TID PRN 12/11/20 18:29 Cyclobenzaprine [Flexeril] 7.5 mg PO BID PRN 12/11/20 18:30 Pantoprazole [ProTONIX] 40 mg PO BIDAC Sertraline [Zoloft] 50 mg PO DAILY 12/11/20 20:00 Piperacillin/Tazobactam [Piperacil-Tazobact] 3.375 gm Sodium Chloride 0.9% [Normal Saline] 50 ml IV Q8H 12/11/20 21:00 QUEtiapine [SEROqueL] 200 mg PO BEDTIME 12/11/20 21:09 oxyCODONE 10 mg PO Q4H PRN 12/12/20 00:49 Morphine 1 mg IVPUSH Q4H PRN - Plan Plan:: 35 y/o M admitted for cellulitis of b/l lower feet and bacteremia, Cont IV antibiotics for now cont IV fluids fu on repeat blood cultures Duonebs as needed Zofran IV for nausea Resume home meds as appropriate Lovenox for dvt ppx Morphine for pain will start gabapentin for neuropathy
[2020-12-12] MEDS: Enoxaparin 40 MG/0.4 ML Syringe SUBCUT SCH (17:19)
[2020-12-12] MEDS: oxyCODONE 5 MG Tab PO PRN (19:40)
[2020-12-12] MEDS: QUEtiapine 100 MG Tab PO SCH (21:39)
[2020-12-13] MEDS: Lactated Ringers 1,000 ML IV SCH
[2020-12-13] MEDS: Morphine 2 MG/ML SYRINGE IVPUSH PRN ×2 (04:11→12:15)
[2020-12-13] MEDS: Piperacillin/Tazobactam 3.375 GM in Sodium Chloride 0.9% 50 ML IV SCH (04:12)
[2020-12-13] MEDS: Pantoprazole 40 MG Tab.CR PO SCH (06:50)
[2020-12-13] MEDS: LORazepam 1 MG Tab PO PRN (06:50)
[2020-12-13 07:13] LABS: BLOOD UREA NITROGEN,BUN 8 mg/dL (7.0-18.0); CARBON DIOXIDE,CO2 26.9 mmol/L (21.0-32.0); CHLORIDE,CL 106 mmol/L (98-107); GLUCOSE RANDOM 85 mg/dL (74-106); SODIUM,NA 141 mmol/L (136-148)
[2020-12-13 08:11] VITALS: BP 146/67; PULSE 75
[2020-12-13] MEDS: Gabapentin 100 MG Cap PO SCH (08:12)
[2020-12-13] MEDS: Sertraline 25 MG Tab PO SCH (08:12)
[2020-12-13] MEDS: oxyCODONE 5 MG Tab PO PRN (08:14)
[2020-12-13] MEDS ORDERED: Levofloxacin 750 MG Tab PO ONE (12:14)
--- NOTE | 2020-12-13 12:16 | PCM.DCSUM1 ---
Discharge Summary - Hospital Course Free Text/Narrative:: 35-year-old male past medical history terminal lung cancer w/bony mets, on palliative/hospice measures recurrent lower extremity cellulitis, chronic low back pain, depression, presents for b/l lower feet cellulitis. Patient was seen 2 days ago and diagnosed with cellulitis, received IV Rocephin and blood cultures were obtained due to high wbc count. Patient wasplaced on Keflex and Bactrim and discharged home. His blood cultures did result this morning with gram positive cocci. Patient was called back to ER,he notes that the area of redness and pain in his leg seems to be spreading on his foot and up his leg. He was advised to come back to the emergency department. He notes lack of sensation to the left lower extremity but this has been going on for a while and is not new. He denies any fevers at home. He notes chest pain and shortness of breath but are unchanged from his baseline. DVT study and CTA lower extremities and pelvis was negative for any DVT. Rest of the labs were not alarmingly, with improved wbc count, Patient was admitted for further management. Patient was started on IV Zosyn given his immunocompromised status and positive blood culture. Repeat blood cultures were obtained, patient was complaining of bilateral lower extremity burning sensation, patient was started on gabapentin low-dose to help with the neuropathy. Home medications for pain control were continued, patient also received as needed morphine for back pain which is chronic in nature. Patient's white count resolved the next day, blood cultures were still pending. Eventually the first set of blood cultures, 1 bottle came back positive for coagulase-negative Staphylococcus. Sensitivity showed it was sensitive to levofloxacin. Although likely contaminant because the bacteria only grew in 1 out of the 4 bottles, but given patient's immunocompromise status, and some residual cellulitis, patient was sent home on oral levofloxacin for 7 more days to complete a total 10-day course of antibiotic. Patient had no systemic signs of infection including fever, chills, leukocytosis or any other sepsis criteria. Patient was hemodynamically stable for discharge and recommended to follow-up with his primary care doctor upon discharge. Patient was recommended to come back to ER in case he spikes a fever, has chills, rigors, if his feet look worse or if he generally feels unwell. Diagnosis: Stroke: No - Discharge Data Discharge Date: 12/13/20 Discharge Disposition: Home, Self-Care 01 Condition: Fair - Referral to Home Health Primary Care Physician: Muna Nix NP - Discharge Diagnosis/Problem(s) (1) Hospice care Status: Acute (2) Cellulitis SNOMED Code(s): 742505603 ICD Code: L03.90 - CELLULITIS, UNSPECIFIED Status: Acute Qualifiers: Site of cellulitis: extremity Site of cellulitis of extremity: lower extremity Laterality: unspecified laterality Qualified Code(s): L03.119 - Cellulitis of unspecified part of limb - Discharge Plan *PRESCRIPTION DRUG MONITORING PROGRAM REVIEWED*: No *COPY OF PRESCRIPTION DRUG MONITORING REPORT IN PATIENT PETER: No Prescriptions/Med Rec: Levofloxacin 750 mg PO DAILY #7 tablet Gabapentin [Neurontin] 100 mg PO BID #60 cap Home Medications: Home Meds Marijuana 0 unit PO ASDIRECTED PRN 12/22/18 [History] Ibuprofen 400 mg PO Q6H PRN #30 tablet 05/20/20 [Rx] Ondansetron [Zofran] 4 mg PO Q4H PRN 08/24/20 [History] Sertraline [Zoloft] 50 mg PO DAILY 10/09/20 [History] Cyclobenzaprine HCl 7.5 mg PO BID PRN 10/13/20 [History] LORazepam [Ativan] 2 mg PO TID PRN 10/13/20 [History] Pantoprazole Sodium 40 mg PO BID 10/13/20 [History] QUEtiapine Fumarate [Quetiapine Fumarate] 200 mg PO BEDTIME 10/13/20 [History] oxyCODONE HCl [Oxycodone HCl] 10 mg PO Q4H PRN 10/13/20 [History] Gabapentin [Neurontin] 100 mg PO BID #60 cap 12/13/20 [Rx] Levofloxacin 750 mg PO DAILY #7 tablet 12/13/20 [Rx] Patient Handouts: Gabapentin capsules or tablets, Levofloxacin tablets Referrals: Clive Livingston MD [Physician] - 12/22/20 8:00 am - Discharge Summary/Plan Comment DC Time >30 min.: No - Patient Data Vitals - Most Recent: Last Vital Signs Temp 37.0 C 12/13/20 08:09 Pulse 75 12/13/20 08:09 Resp 18 12/13/20 08:09 BP 146/67 H 12/13/20 08:09 Pulse Ox 97 12/13/20 08:09 Weight - Most Recent: 78.471 kg I&O - Last 24 hours: Intake & Output 12/12/20 12/13/20 12/13/20 22:59 06:59 14:59 Intake Total 4094 2313 Output Total 0 Balance 4094 2313 Lab Results - Last 24 hrs: Laboratory Results - last 24 hr 12/13/20 12/13/20 Range/Units 06:30 06:30 WBC 10.23 (4.0-11.0) K/uL RBC 4.75 (4.50-5.90) M/uL Hgb 14.7 (13.0-17.0) g/dL Hct 42.9 (38.0-50.0) % MCV 90.3 (80.0-98.0) fL MCH 30.9 (27.0-32.0) pg MCHC 34.3 (31.0-37.0) g/dL RDW Std Deviation 42.5 (28.0-62.0) fl RDW Coeff of Miles 13 (11.0-15.0) % Plt Count 288 (150-400) K/uL MPV 10.90 (7.40-12.00) fL Neut % (Auto) 68.8 (48.0-80.0) % Lymph % (Auto) 21.6 (16.0-40.0) % [place] % (Auto) 7.7 (0.0-15.0) % Eos % (Auto) 1.6 (0.0-7.0) % Baso % (Auto) 0.3 (0.0-1.5) % Neut # (Auto) 7.0 H (1.4-5.7) K/uL Lymph # (Auto) 2.2 (0.6-2.4) K/uL [place] # (Auto) 0.8 (0.0-0.8) K/uL Eos # (Auto) 0.2 (0.0-0.7) K/uL Baso # (Auto) 0.0 (0.0-0.1) K/uL Nucleated RBC % 0.0 /100WBC Nucleated RBCs # 0 K/uL Sodium 141 (136-148) mmol/L Potassium 4.0 (3.5-5.1) mmol/L Chloride 106 (98-107) mmol/L Carbon Dioxide 26.9 (21.0-32.0) mmol/L BUN 8 (7.0-18.0) mg/dL Creatinine 1.0 (0.8-1.3) mg/dL Est Cr Clr Drug Dosing 116.62 mL/min Estimated GFR (MDRD) > 60.0 ml/min Glucose 85 (74-106) mg/dL Calcium 8.6 (8.5-10.1) mg/dL NAYELI Results - Last 24 hrs: Microbiology 12/11/20 11:30 Aerobic Blood Culture - Preliminary Blood - Venous - Lab Draw NO GROWTH AFTER 2 DAYS Anaerobic Blood Culture - Preliminary NO GROWTH AFTER 2 DAYS 12/11/20 10:30 Aerobic Blood Culture - Preliminary Blood - Venous - Iv Start NO GROWTH AFTER 2 DAYS Anaerobic Blood Culture - Preliminary NO GROWTH AFTER 2 DAYS Med Orders - Current: Current Medications Albuterol/Ipratropium (Albuterol/Ipratropium 3.0-0.5 Mg/3 Ml Neb Soln) 3 ml NEB Q4HRRT PRN PRN Reason: Shortness Of Breath/wheezing Cyclobenzaprine HCl (Cyclobenzaprine 5 Mg Tab) 7.5 mg PO BID PRN PRN Reason: back spasms Last Admin: 12/12/20 19:40 Dose: 7.5 mg Documented by: Enoxaparin Sodium (Enoxaparin 40 Mg/0.4 Ml Syringe) 40 mg SUBCUT Q24H [facility] Last Admin: 12/12/20 17:19 Dose: 40 mg Documented by: Gabapentin (Gabapentin 100 Mg Cap) 100 mg PO BID [facility] Last Admin: 12/13/20 08:12 Dose: 100 mg Documented by: Lactated Ringer's (Ringers, Lactated) 1,000 mls @ 125 mls/hr IV ASDIRECTED [facility] Last Admin: 12/13/20 00:00 Dose: 125 mls/hr Documented by: Piperacillin Sod/Tazobactam (Sod 3.375 gm/ Sodium Chloride) 50 mls @ 100 mls/hr IV Q8H [facility] Last Admin: 12/13/20 04:12 Dose: 100 mls/hr Documented by: Ibuprofen (Ibuprofen 400 Mg Tab) 400 mg PO Q6H PRN PRN Reason: Pain (mild 1-3) Levofloxacin (Levofloxacin 750 Mg Tab) 750 mg PO Q24H ONE Stop: 12/13/20 12:15 Lorazepam (Lorazepam 1 Mg Tab) 1 mg PO TID PRN PRN Reason: Anxiety Last Admin: 12/13/20 06:50 Dose: 1 mg Documented by: Morphine Sulfate (Morphine 2 Mg/Ml Syringe) 1 mg IVPUSH Q4H PRN PRN Reason: Pain Last Admin: 12/13/20 12:15 Dose: 1 mg Documented by: Ondansetron HCl (Ondansetron 4 Mg/2 Ml Sdv) 4 mg IVPUSH Q4H PRN PRN Reason: Nausea/Vomiting Oxycodone HCl (Oxycodone 5 Mg Tab) 10 mg PO Q4H PRN PRN Reason: Pain Last Admin: 12/13/20 08:14 Dose: 10 mg Documented by: Pantoprazole Sodium (Pantoprazole 40 Mg Tab.Cr) 40 mg PO BIDAC [facility] Last Admin: 12/13/20 06:50 Dose: 40 mg Documented by: Quetiapine Fumarate (Quetiapine 100 Mg Tab) 200 mg PO BEDTIME [facility] Last Admin: 12/12/20 21:39 Dose: 200 mg Documented by: Sertraline HCl (Sertraline 25 Mg Tab) 50 mg PO DAILY [facility] Last Admin: 12/13/20 08:12 Dose: 50 mg Documented by: Sodium Chloride (Sodium Chloride 0.9% 10 Ml Syringe) 10 ml FLUSH ASDIRECTED PRN PRN Reason: Keep Vein Open Last Admin: 12/11/20 10:35 Dose: 10 ml Documented by: Sodium Chloride (Sodium Chloride 0.9% 2.5 Ml Syringe) 2.5 ml FLUSH ASDIRECTED PRN PRN Reason: Keep Vein Open Last Admin: 12/11/20 10:35 Dose: 2.5 ml Documented by: Discontinued Medications Sodium Chloride (Normal Saline) 1,000 mls @ 999 mls/hr IV .Bolus ONE Stop: 12/11/20 11:06 Last Admin: 12/11/20 10:36 Dose: 999 mls/hr Documented by: Piperacillin Sod/Tazobactam (Sod 3.375 gm/ Sodium Chloride) 50 mls @ 100 mls/hr IV ONETIME ONE Stop: 12/11/20 10:35 Last Admin: 12/11/20 11:29 Dose: 100 mls/hr Documented by: Sodium Chloride (Normal Saline) 1,000 mls @ 999 mls/hr IV .Bolus ONE Stop: 12/11/20 12:57 Last Admin: 12/11/20 12:04 Dose: 999 mls/hr Documented by: Iopamidol (Iopamidol 755 Mg/Ml 500 Ml Multipack Bottle) 120 ml IVPUSH ONETIME STA Stop: 12/11/20 14:30 Last Admin: 12/11/20 14:30 Dose: 120 ml Documented by: Lorazepam (Lorazepam 2 Mg/Ml Sdv) 1 mg IVPUSH ONETIME ONE Stop: 12/11/20 13:52 Last Admin: 12/11/20 14:34 Dose: 1 mg Documented by: Morphine Sulfate (Morphine 4 Mg/Ml Syringe) 4 mg IVPUSH ONETIME ONE Stop: 12/11/20 17:48 Last Admin: 12/11/20 17:54 Dose: 4 mg Documented by: Ondansetron HCl (Ondansetron 4 Mg/2 Ml Sdv) 4 mg IVPUSH ONETIME ONE Stop: 12/11/20 17:48 Last Admin: 12/11/20 17:56 Dose: 4 mg Documented by: Oxycodone HCl (Oxycodone 5 Mg Tab) 10 mg PO ONETIME ONE Stop: 12/11/20 13:52 Last Admin: 12/11/20 14:34 Dose: 10 mg Documented by: Oxycodone HCl (Oxycodone Hcl 10 Mg Tablet) 10 mg PO Q4H PRN PRN Reason: Pain
== END 2020-12-13 12:47 | disposition home or self-care (01) ==
LOC: MW.ED 09:20 → MW.MS 17:37
PROVIDERS: ADMIT Student in an Organized Health Care Education/Training Program; ATTEND Student in an Organized Health Care Education/Training Program
DX: L03.115 Cellulitis of right lower limb (principal); L03.116 Cellulitis of left lower limb; Z91.041 Radiographic dye allergy status; Z88.8 Allergy status to other drugs, medicaments and biological substances; Z79.899 Other long term (current) drug therapy; Z87.891 Personal history of nicotine dependence; Z20.822 Contact with and (suspected) exposure to COVID-19
CPT/HCPCS: 36415; 71045; 75635; 80048; 80053; 81003; 83605; 85025; 85610; 85730; 86140; 87040; 87635; 93005; 93970; A9270; J1650; J2060; J2270; J2405; J2543; J7030; J7120; Q9967; 96365; 96374; 96375; 99285-25; U0002

== ENCOUNTER 2020-12-18 21:55 | Emergency (ER) | payer MEDICAID ==
[2020-12-18] MEDS ORDERED: Sodium Chloride 0.9% 2.5 ML Syringe FLUSH PRN (23:31)
[2020-12-18] MEDS ORDERED: Sodium Chloride 0.9% 1,000 ML IV ONE (23:31)
[2020-12-18] MEDS ORDERED: Sodium Chloride 0.9% 10 ML Syringe FLUSH PRN (23:31)
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
[2020-12-18] MEDS ORDERED: Gabapentin 100 MG Cap PO ONE (23:51)
[2020-12-18 23:52] VITALS: BP 115/75; PULSE 87
[2020-12-19 00:19] LABS: BLOOD UREA NITROGEN,BUN 11 mg/dL (7.0-18.0); CARBON DIOXIDE,CO2 26.8 mmol/L (21.0-32.0); CHLORIDE,CL 101 mmol/L (98-107); GLUCOSE RANDOM 81 mg/dL (74-106); POTASSIUM,K 4.2 mmol/L (3.5-5.1); SODIUM,NA 138 mmol/L (136-148)
[2020-12-19] MEDS ORDERED: Acetaminophen/oxyCODONE 325-5 MG Tab PO ONE (01:31)
--- NOTE | 2020-12-19 02:12 | CR ---
INDICATION: Bilateral hip pain TECHNIQUE: Pelvis radiograph, Hip radiograph 5 views bilateral COMPARISON: None FINDINGS: Bone: No acute fractures or aggressive bone lesions are identified. Joint: The hip joints are unremarkable. The visualized sacroiliac joints are unremarkable in appearance. The pubic symphysis is normal in appearance. Soft tissue: Unremarkable. The visualized bowel gas pattern of the pelvis is unremarkable in appearance. No radiopaque foreign bodies are seen. IMPRESSION: 1. No acute osseous injuries or abnormalities are noted. Dictated by: Curt Abbasi MD @ 12/19/2020 02:12:17 (Electronically Signed)
--- NOTE | 2020-12-19 02:12 | CR ---
INDICATION: Fever TECHNIQUE: Chest radiograph 1 view COMPARISON: 12/11/2020 FINDINGS: Mediastinum: The mediastinum is normal in appearance. The heart silhouette is normal in size and morphology. Lung: Both lungs are unremarkable in appearance. No sign of pleural effusion seen. No pneumothorax is identified. Bone and Soft tissue: Unremarkable for age. IMPRESSION: 1. No acute cardiopulmonary disease is seen. Dictated by: Curt Abbasi MD @ 12/19/2020 02:11:44 (Electronically Signed)
== END 2020-12-19 03:16 | disposition home or self-care (01) ==
LOC: MW.ED 21:55
DX: G62.9 Polyneuropathy, unspecified (principal); D72.829 Elevated white blood cell count, unspecified; M19.90 Unspecified osteoarthritis, unspecified site; Z88.8 Allergy status to other drugs, medicaments and biological substances; Z79.899 Other long term (current) drug therapy; Z91.048 Other nonmedicinal substance allergy status
CPT/HCPCS: 36415; 71045; 73521; 80053; 81003; 85025; 85610; 99283; A9270; J7030

== ENCOUNTER 2020-12-25 15:05 | Emergency (ER) | payer MEDICAID ==
[2020-12-25] MEDS ORDERED: Haloperidol Lactate 5 MG/ML SDV IM ONE (15:20)
[2020-12-25] MEDS ORDERED: LORazepam 2 MG/ML SDV IM ONE (15:20)
[2020-12-25] MEDS ORDERED: diphenhydrAMINE 50 MG/ML SDV IM ONE (15:20)
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
[2020-12-25] MEDS: diphenhydrAMINE 50 MG/ML SDV ONE ×2 (15:31→16:09)
[2020-12-25] MEDS: Haloperidol Lactate 5 MG/ML SDV ONE ×2 (15:31→16:09)
[2020-12-25] MEDS: LORazepam 2 MG/ML SDV ONE ×2 (15:32→16:09)
[2020-12-25 15:59] LABS: ACETAMINOPHEN <2.0 ug/mL; BLOOD UREA NITROGEN,BUN 8 mg/dL (7.0-18.0); CARBON DIOXIDE,CO2 31.1 mmol/L (21.0-32.0); CHLORIDE,CL 102 mmol/L (98-107); GLUCOSE RANDOM 100 mg/dL (74-106); POTASSIUM,K 3.5 mmol/L (3.5-5.1); SODIUM,NA 140 mmol/L (136-148)
--- NOTE | 2020-12-25 16:00 | CR ---
INDICATION: Hanging attempt, well appearing TECHNIQUE: Chest radiograph 1 view on 2 films COMPARISON: None FINDINGS: Mediastinum: The mediastinum is normal in appearance. The heart silhouette is normal in size and morphology. Lung: Both lungs are unremarkable in appearance. No sign of pleural effusion seen. No pneumothorax is identified. Bone and Soft tissue: Unremarkable for age. IMPRESSION: 1. No acute cardiopulmonary disease is seen. Dictated by: Curt Abbasi MD @ 12/25/2020 15:59:07 (Electronically Signed)
--- NOTE | 2020-12-25 16:34 | CT ---
INDICATION: Attempted hanging. TECHNIQUE: Non-contrast CT of the head is submitted. No comparisons. FINDINGS: The ventricles, sulci and gyri are of normal size, shape and contour. Midline structures are centrally located. No convincing evidence of intra- or extra-axial fluid collections. IMPRESSION: 1. No radiographic evidence of acute intracranial abnormalities. Please note that all CT scans at this facility use dose modulation, iterative reconstruction, and/or weight-based dosing when appropriate to reduce radiation dose to as low as reasonably achievable. Dictated by Phu Zavala MD @ 12/25/2020 4:33:[address] Phu Zavala @ Dec 25 2020 4:33PM
--- NOTE | 2020-12-25 16:36 | CT ---
INDICATION: Attempted hanging. TECHNIQUE: Non-contrast axial CT of the cervical spine with coronal and sagittal reconstructions. No comparisons. FINDINGS: Image quality degraded by patient motion. The overall stature and alignment of the cervical spine is within normal limits. Prevertebral soft tissues, cervical airway, dens and lateral masses are within normal limits. No evidence of bony fragments narrowing the central canal or visualized neural foramina. IMPRESSION: 1. Image quality degraded by patient motion. 2. Grossly, no radiographic evidence of acute osseous injury. Please note that all CT scans at this facility use dose modulation, iterative reconstruction, and/or weight-based dosing when appropriate to reduce radiation dose to as low as reasonably achievable. Dictated by Phu Zavala MD @ 12/25/2020 4:35:[address] Phu Zavala @ Dec 25 2020 4:35PM
[2020-12-25 20:33] VITALS: BP 114/70; PULSE 76
== END 2020-12-25 20:37 ==
LOC: MW.ED 15:05
DX: F32.9 Major depressive disorder, single episode, unspecified (principal); Z91.048 Other nonmedicinal substance allergy status; Z79.899 Other long term (current) drug therapy; Z20.822 Contact with and (suspected) exposure to COVID-19
CPT/HCPCS: 36415; 70450; 71045; 72125; 80053; 80143; 80179; 80305; 80307; 81003; 84443; 84484; 85025; 87635; 96372; 99285; J1200; J1630; J2060; U0002